=== PATIENT | male | born 1955 | race Caucasian/White ===

== ENCOUNTER 2023-03-21 22:01 | Emergency (ER) | payer OTHER, SELFPAY ==
[2023-03-21 22:02] VITALS: BP 173/87; PULSE 55; RESP 15; TEMP 36.4; O2SAT 100; BMI 28.9
[2023-03-21 22:41] VITALS: BP 139/84; BP 154/85; BP 155/95; PULSE 56; PULSE 58; PULSE 65
--- NOTE | 2023-03-21 22:41 | CT_ITS ---
INDICATION: dizziness EXAMINATION: CT BRAIN - CT Head or Brain W/O Contrast Injection TECHNIQUE: Multiple axial images were obtained of the head without intravenous contrast. A radiation dose optimization technique was used for this scan. IV Contrast dosage and agent: None. COMPARISON: None. FINDINGS: BRAIN PARENCHYMA: No intra- or extra-axial hemorrhage. No evidence of acute infarct. No intracranial mass or mass effect. Posterior fossa structures are unremarkable. CSF SPACES: Appropriate for age. No hydrocephalus. Basal cisterns are patent. CALVARIUM, SKULL BASE, PARANASAL SINUSES AND MASTOID AIR CELLS: Scattered ethmoid mucoperiosteal thickening. No discrete lytic or blastic abnormalities. ORBITS: Both globes, extraocular muscles, optic nerves and retrobulbar fat appear unremarkable. CT/Brain/Head without Contrast IMPRESSION: No acute intracranial findings. Electronically Signed: Juve Rodríguez MD at 23:16 EDT ,
[2023-03-21 22:56] LABS: Absolute Lymphocyte Count 1.46 X10^3/uL (0.83-4.51); Absolute Neutrophil Count 2.8 X10^3/uL (2.0-7.7); Basophil# 0.02 X10^3/uL; Basophil% 0.4 % (0-1); Eosinophil# 0.08 X10^3/uL; Eosinophils% 1.6 % (0-5); Hematocrit 40.8 % (40-54); Hemoglobin 13.5 g/dL (13.0-16.5); Lymphocyte # 1.46 X10^3/ul (0.83-4.51); Mean Corp Hgb Conc 33.1 g/dL (32-36); Mean Corpuscular Hgb 31.4 pg (27.0-32.0); Mean Corpuscular Volume 94.9 fL (80-94); Mean Platelet Vol. 9.3 fl (6.2-12.0); Monocyte# 0.53 X10^3/uL; Monocyte% 10.9 % (0-10); NRBC Flagged by Analyzer 0 % (0-5); Neutrophil # 2.77 X10^3/uL (2.7-7.7); Neutrophil % 57.1 % (47-70); Platelet Count 218 K/mm3 (150-450); RBC Distribution Width CV 12.8 % (11.6-14.6); RBC Distribution Width SD 44.6 fl (35.1-43.9); White Blood Count 4.9 K/mm3 (4.4-11.0)
--- NOTE | 2023-03-21 23:05 | RAD_ITS ---
INDICATION: dizziness EXAMINATION/TECHNIQUE: X-RAY - XR Chest 2 Views COMPARISON: None. FINDINGS: LINES/DEVICES: None. LUNGS: No consolidation, edema or effusion. No pneumothorax. MEDIASTINUM AND CARDIOVASCULAR STRUCTURES: Cardiac silhouette not enlarged. Central airways and mediastinal contour are unremarkable. BONES AND SOFT TISSUES: Unremarkable. RAD/Chest PA and Lateral IMPRESSION: No radiographic evidence of acute cardiopulmonary disease. Electronically Signed: Juve Rodríguez MD at 23:28 EDT ,
--- NOTE | 2023-03-21 23:08 | EDS_ITS ---
HPI History of Present Illness Chief Complaint: Dizziness Informant: patient and family Narrative Narrative: Patient is a 67-year-old male with past medical history of pretension recently started on hydralazine. He states that over the last couple days he has noted that if he stands up quickly or bends down to tie his shoes that he will feel dizzy. He describes this is more of a lightheaded/near passing out sensation. He denies any chest pain or palpitations associated with this. He reports he has had mild congestion and right ear fullness as well. Denies any recent bouts of vomiting diarrhea or loss of blood such as hematuria or hematochezia. He s tates that the dizziness is frequent with his position change and it is now affecting his day-to-day activities and therefore he comes in for evaluation [facility] Medical History Hypertension Home Medications aspirin 81 mg capsule 81 mg PO DAILY 03/21/23 [History Last Taken Unknown] hydralazine 10 mg tablet 10 mg PO BID 03/21/23 [History Last Taken Unknown] azelastine 137 mcg (0.1 %) nasal spray aerosol 2 spray intranasal BID #30 mL 03/22/23 [Rx Last Taken Unknown] Allergy/AdvReac Type Severity Reaction Status Date / Time No Known Allergies Allergy Verified 03/21/23 22:05 Surgical History no surgical history Social History Smoking Status: Never smoker [facility] ED Constitutional Constitutional ED: Denies chills or fever(s) Eyes Eyes: Denies change in vision ENT ENT ED: Reports rhinorrhea and other Details: Positive right ear fullness ; Denies sore throat Cardiovascular Cardiovascular: Reports other Details: Positive dizziness/near syncope ; Denies chest pain, palpitations or racing heartbeat Respiratory/Chest Respiratory/Chest: Denies cough or dyspnea Gastrointestinal Gastrointestinal: Denies abdominal pain, diarrhea, nausea or vomiting Genitourinary Genitourinary ED: Denies dysuria or hematuria Musculoskeletal Musculoskeletal: Denies myalgias Integumentary Denies rash Neurologic Neurologic: Denies headache(s), paresthesias or weakness Hematologic/Lymphatic Hematologic/Lymphatic: Denies easy bleeding or easy bruising EXAM Physical Exam Const Vital Signs: 03/21/23 22:02 03/21/23 22:28 03/21/23 22:41 Temperature 97.6 F L Temperature Source Temporal Pulse Rate 55 L Pulse Rate [Lying] 56 L Pulse Rate [Sitting (for 1 minute prior to obtaining)] 58 L Pulse Rate [Standing (for 1 minute prior to obtaining)] 65 Respiratory Rate 15 Respiratory Effort Normal Non-Labored Respiratory Pattern Normal Blood Pressure 173/87 H Blood Pressure [Lying] 139/84 H Blood Pressure [Sitting (for 1 minute prior to obtaining)] 154/85 H Blood Pressure [Standing (for 1 minute prior to obtaining)] 155/95 H Blood Pressure Mean 115 Blood Pressure Mean [Lying] 102 Blood Pressure Mean [Sitting (for 1 minute prior to obtaining)] 108 Blood Pressure Mean [Standing (for 1 minute prior to obtaining)] 115 Pulse Ox 100 Oxygen Delivery Method 03/21/23 23:57 Temperature Temperature Source Pulse Rate 50 L Pulse Rate [Lying] Pulse Rate [Sitting (for 1 minute prior to obtaining)] Pulse Rate [Standing (for 1 minute prior to obtaining)] Respiratory Rate 20 H Respiratory Effort Respiratory Pattern Blood Pressure 148/93 H Blood Pressure [Lying] Blood Pressure [Sitting (for 1 minute prior to obtaining)] Blood Pressure [Standing (for 1 minute prior to obtaining)] Blood Pressure Mean 111 Blood Pressure Mean [Lying] Blood Pressure Mean [Sitting (for 1 minute prior to obtaining)] Blood Pressure Mean [Standing (for 1 minute prior to obtaining)] Pulse Ox 96 Oxygen Delivery Method Room Air Positive well nourished and well developed General Appearance ED: well developed; Negative for pallor HEENT HEENT Narrative: Mucous membranes are slightly dry and tacky without secondary changes to suggest infection Bilateral ear canals are normal the right TM is slightly retracted but no secondary changes to suggest infection Eyes PERRL and EOMs intact bilaterally General Eye ED: Negative for pale conjunctiva or scleral icterus Neck supple Neck Narrative: No nuchal rigidity or meningeal signs noted Resp normal respiratory effort and clear to auscultation bilaterally Cardio regular rhythm Rate: bradycardia and other Other Details: Bradycardic rate with regular rhythm No murmurs rubs or gallops noted Radial and carotid pulses are equal and symmetric GI normal to inspection, nondistended, normoactive bowel sounds, non-tender, non- distended and no masses GI Narrative: No voluntary guarding or rigidity. No pulsatile mass or fluid wave Auscultation: normoactive bowel sounds Palpation: soft Extremity normal to inspection Extremity Narrative: No asymmetric edema no pitting edema negative Homans' sign bilaterally Neuro oriented x3, CN's II-XII intact bilaterally and no sensory deficits noted Neuro Narrative: Cranial nerves II through XII are grossly intact there are no focal neurologic deficits. No pronator drift no dysmetria no truncal ataxia. Stroke scale score 0. No nystagmus noted. Negative [address] exam Sensorium / Orientation: alert Motor Exam: strength 5/5 throughout Psych mental status grossly normal Skin no rashes or lesions noted Skin Narrative: Skin turgor is slightly increased General Skin Exam: Negative for jaundice or pallor MDM MDM MDM Narrative Medical decision making narrative: Patient presented to the ER mildly hypertensive but does have a recent diagnosis of this and otherwise with stable vitals. He reported dizziness that occurred with changes in position but did not have any nystagmus and described the sensation as more of a near syncopal event not a motion going against peripheral vertigo. Other differential diagnoses are for cardiac dysrhythmia acute coronary syndrome acute blood loss anemia acute kidney injury electrolyte derangement or brain mass versus brain bleed. Head CT was obtained secondary to this which revealed no acute finding. Lab work revealed no clinically significant changes. Orthostatic vital signs were obtained as well and were technically negative. Patient also states that with the changes in position for the Ortho she did not have return of his near syncope symptoms. He states he feels normal at this time. As he is also had some congestion and sinus pressure and his physical exam shows mild right-sided eustachian tube dysfunction I feel this is most likely the cause of his symptoms. Patient will be given a liter of fluid because of his reported near syncope with changes in position but also Decadron secondary to his eustachian tube dysfunction. Following administration of fluids and Decadron vitals remained stable his neurologic exam remained normal and he is able to ambulate with a steady gait. I do feel this is most likely related to eustachian tube dysfunction I will place him on as Astelin nasal spray to help with any type of eustachian tube dysfunction but as this does not appear to be cardiac or neurologic in nature he is otherwise safe for discharge History & Record Review Discussion w/independent historian: Patient and Family Lab Data Attestation: I reviewed the patient's lab results. Labs: Laboratory Results - last 24 hr 03/21/23 22:50 WBC 4.9 RBC 4.30 L Hgb 13.5 Hct 40.8 MCV 94.9 H MCH 31.4 MCHC 33.1 RDW Std Deviation 44.6 H RDW Coeff of Torey 12.8 Plt Count 218 MPV 9.3 Immature Gran % (Auto) 0.000 Neut % (Auto) 57.1 Lymph % (Auto) 30.0 Thurston % (Auto) 10.9 H Eos % (Auto) 1.6 Baso % (Auto) 0.4 Absolute Neuts (auto) 2.8 Absolute Lymphs (auto) 1.46 Nucleated RBC % 0 Sodium 142 Potassium 4.3 Chloride 110 H Carbon Dioxide 27.0 Anion Gap 5 BUN 30 H Creatinine 1.00 Estim Creat Clear Calc 70.30 Est GFR (MDRD) Af Amer 96 Est GFR (MDRD) Non-Af 79 BUN/Creatinine Ratio 30.0 H Glucose 112 H Calcium 9.0 Magnesium 2.1 Troponin I High Sens 6 Radiography Diagnostic Testing: Clinical Impression(s) from Imaging Studies Brain CT 03/21/23 22:41 IMPRESSION: No acute intracranial findings. Electronically Signed: Juve Rodríguez MD at 23:16 EDT , Chest X-Ray 03/21/23 23:05 IMPRESSION: No radiographic evidence of acute cardiopulmonary disease. Electronically Signed: Juve Rodríguez MD at 23:28 EDT , 2 view Chest x-ray as interpreted by the emergency medicine physician reveals no acute infiltrate pneumothorax pleural effusion or widening of the mediastinum Discharge Plan Triage Chief Complaint: Dizziness ED Provider: [facility] Dx/Rx/DC Orders Clinical Impression: Dysfunction of right eustachian tube, Dizziness, Hypertension Instructions: Anatomy of the Inner Ear, Dizziness Fainting Causes Prescriptions: New azelastine 137 mcg (0.1 %) aerosol,spray 2 spray intranasal BID Qty: 30 2RF Rx Instructions: administer into each nostril No Action hydralazine 10 mg tablet 10 mg PO BID aspirin 81 mg capsule 81 mg PO DAILY Primary Care Provider: Blas Robb NP Referrals: Blas Robb NP, [facility] [Primary Care Provider] - Activity Restrictions/Additional Instructions: Your work-up today showed no sign of heart damage or stroke. I feel that your dizziness is most likely related to pressure within the inner ear. Secondary to this take the nasal spray as directed. Also keep yourself well-hydrated continue your aspirin and hydralazine as previously directed. If you have worsening of symptoms or any further concerns please return to the ER for repeat evaluation. Disposition Disposition: Home, Self Care
[2023-03-21 23:16] LABS: Anion Gap 5 (5-15); BUN 30 mg/dL (7-18); Chloride 110 mmol/L (98-107); EST Glomerular Filtration Rate 79 mL/min (>60); Est Glom Filt Rate - Afr Amer 96 mL/min (>60); Glucose 112 mg/dL (74-106); Magnesium 2.1 mg/dL (1.6-2.6); Potassium 4.3 mmol/L (3.5-5.1); Sodium Level 142 mmol/L (136-145); Troponin-I HS 6 pg/mL (3.0-78.0)
[2023-03-21 23:57] VITALS: BP 148/93; PULSE 50; RESP 20; O2SAT 96
[2023-03-21] MEDS: 0.9% Normal Saline (1000mL) 1,000 ML 999 ML IV (23:58)
[2023-03-21] MEDS: dexAMETHasone 10 MG/ML Vial IV (23:58)
[2023-03-22 00:46] VITALS: BP 146/88; PULSE 48; RESP 15; O2SAT 98
== END 2023-03-22 00:51 | disposition home or self-care (01) ==
PROVIDERS: Emergency Provider Emergency Medicine; PCP Nurse Practitioner Family; Visit Provider Emergency Medicine
DX: H69.91 Unspecified Eustachian tube disorder, right ear (principal); R42 Dizziness and giddiness; I10 Essential (primary) hypertension; Z79.82 Long term (current) use of aspirin; Z79.899 Other long term (current) drug therapy
CPT/HCPCS: 70450; 71046; 80048; 83735; 84484; 85025; 93005; 96361; 96374; 99284; J7030; A4216

== ENCOUNTER 2023-06-12 00:49 | Emergency (ER) | payer OTHER, SELFPAY ==
[2023-06-12 00:51] VITALS: BP 136/92; PULSE 57; RESP 16; TEMP 36.6
[2023-06-12 00:53] VITALS: BP 136/92; PULSE 58; RESP 20; TEMP 36.7; O2SAT 100; BMI 29.7
--- OUTSIDE RECORDS SUMMARY | 2023-06-12 01:14 | XMS RPT_ITS | CCD ---
Author Name Unknown Address [id number] [place] [address] Organization [facility] Care Team Providers Care [employer] Technician Name Role Phone JUANITA Benitez CNP, GERDA Craig Primary [facility] U [facility] Springer Attending Unavailable JO ANN BARRAZA Primary Care Unavaildavid GALO MD, SOHAN Hein Attending Unavailable PAYAM GARCIA, DR PRICE Attending Unavailab jerry Benitez CNP, GERDA Craig Primary Care [facility] FLORI WATTS, JO ANN Primary Care Physician Medications Current Medications Medication Drug Class(es) Dates Sig (Normalized) Sig (Original) aspirin 81 mg delayed release oral tablet (1 source) Platelet Aggregation Inhibitor, Nonsteroidal Anti-inflammatory Drug Start: 03-26-2023 take 1 mg by mouth once daily aspirin 81 mg oral delayed release tablet mg = tab(s), Oral, qDay, 0 Refill(s) Start Date: 03/26/23 Status: Ordered cardio renew (1 source) Start: 03-26-2023 cardio renew cardio renew, 0 Refill(s), 84.1 Start Date: 03/26/23 Status: Ordered hydrALAZINE hydrochloride 10 mg oral tablet (1 source) Arteriolar Vasodilator Start: 03-17-2023 hydrALAZINE 10 mg oral tablet Dose : 10 mg = 1 tab(s), Oral, BID, # 60 tab(s), 6 Refill(s), Pharmacy: [facility], 172.7, cm, 03/17/23 10:24:00 EDT, Height, kg, 03/17/23 10:24:00 EDT, Dosing Weight Start Date: 03/17/23 Status: Ordered Problems Problem Classification Problem Date Documented Da te Episodic/Chronic Cardiac dysrhythmias (1 source) Bradycardia 03-17-2023 Episodic Conditions associated with dizziness or vertigo (1 source) Dizziness and giddiness; Translations: [Dizziness and giddiness] Onset: 06-07-2023 Episodic Essential hypertension (1 source) Hypertensive disorder 03-17-2023 Chronic Other nervous system disorders (1 source) Impaired cognition; Translations: [Other symptoms and signs involving cognitive functions and awareness] Onset: 06-07-2023 Episodic Otitis media and related conditions (1 source) Dysfunction of eustachian tube 03-26-2023 Episodic Unclassified (1 source) Patient encounter status 03-26-2023 Results Test Name Value Interpretation Reference Range Facil ity Vital Signs Date Time Vital Sign Value Performing Clinician Faci lity 06-07-2023 10:04-0500 Diastolic Blood Pressure Non-Invasive 85 mm[Hg] SOHAN GALO MD [facility] 06-07-2023 10:04-0500 Heart rate 52 /min SOHAN GALO MD [facility] 06-07-2023 10:04-0500 Mean blood pressure 101 mm[Hg] SOHAN GALO MD [facility] 06-07-2023 10:04-0500 Respiratory rate 12 /min SOHAN GALO MD [facility] 06-07-2023 10:04-0500 Systolic Blood Pressure Non-Invasive 133 mm[Hg] SOHAN GALO MD [facility] 06-07-2023 09:14-0500 Blood Pressure Method SOHAN GALO MD [facility] 06-07-2023 09:14-0500 Diastolic Blood Pressure Non-Invasive 89 mm[Hg] SOHAN GALO MD [facility] 06-07-2023 09:14-0500 Heart rate 50 /min SOHAN GALO MD [facility] 06-07-2023 09:14-0500 Mean blood pressure 108 mm[Hg] SOHAN GALO MD [facility] 06-07-2023 09:14-0500 Respiratory rate 16 /min SOHAN GALO MD [facility] 06-07-2023 09:14-0500 Systolic Blood Pressure Non-Invasive 148 mm[Hg] SOHAN GALO MD [facility] 06-07-2023 07:37-0500 Blood Pressure Location SOHAN GALO MD [facility] 06-07-2023 07:37-0500 Blood Pressure Method SOHAN GALO MD [facility] 06-07-2023 07:37-0500 Body height 170.2 cm SOHAN GALO MD [facility] 06-07-2023 07:37-0500 Body temperature 96.98 [degF] SOHAN GALO MD [facility] 06-07-2023 07:37-0500 Body weight 84.1 kg SOHAN GALO MD [facility] 06-07-2023 07:37-0500 Diastolic Blood Pressure Non-Invasive 95 mm[Hg] SOHAN GALO MD [facility] 06-07-2023 07:37-0500 Heart rate 55 /min SOHAN GALO MD [facility] 06-07-2023 07:37-0500 Respiratory rate 16 /min SOHAN GALO MD [facility] 06-07-2023 07:37-0500 Systolic Blood Pressure Non-Invasive 163 mm[Hg] SOHAN GALO MD [facility] Encounters Encounter Date Encounter Type Care Provider Facility Start: 06-07-2023 End: 06-07-2023 Emergency department patient visit JO ANN RUBY [facility] Facility:B Start: 06-07-2023 End: 06-07-2023 Emergency department patient visit SOHAN GALO MD [facility] Start: 03-23-[address] DEE HARE MD F acility:B Start: 03-06-2023 End: 03-06-2023 Emergency department patient visit GERDA Kiara [facility] Facility:B Payers Date Payer Category Payer Self-pay 1955 Unknown [id number] 1955 Unknown [id number] 1955 Unknown [id number] Social History Date Type Detail Facility Start: 03-17-2023 Tobacco smoking status Never s moked tobacco (finding) [facility] CVC Sex Assigned At Male [facility] Functional Status Date Assessment Result Facility 06-07-2023 Functional Status Independent [facility] 06-07-2023 Functional Status Independent [facility] 06-07-2023 Functional Status ID band on, Allergy Band on, Call device within reach, Bed in low position, Wheels locked [facility] Mental Status Date Assessment Result Facility 06-07-2023 Mental Status Orientation Oriented x 4 [facility] 06-07-2023 Mental Status [facility] Discharge instructions 06-07-2023 Note Date & Type Note Facility 06-07-2023 Hospital Discharg e instructions Patient Education 06/07/2023 10:05:46 Near Syncope, Unknown Near-Fainting with Uncertain Cause Fainting (syncope) is a temporary loss of consciousness (passing out). This happens when blood flow to the brain is reduced. Near-fainting (near-syncope) is like fainting, but you do not fully pass out. Instead, you feel like you are going to pass out, but do not actually lose consciousness. Signs and symptoms The following are symptoms of near-fainting: Feeling lightheaded or like you are going to faint Weak pulse Nausea Sweating Blurred vision or feeling like your vision is fading Palpitations Chest pain Hard time breathing Feeling cool and clammy Causes This happens when your blood pressure suddenly drops, and not enough blood flows to your brain. Common minor causes include: Sudden emotional stress such as fear, pain, panic, or the sight of blood Straining or overexertion, such as straining while using the toilet, coughing, or sneezing Standing up too quickly, or standing up for too long a time More serious causes include: Very slow, fast, or irregular heart rate (arrhythmia) Dehydration Significant blood loss Medicines, or a recent change in medicines. Medicines that can cause fainting include blood pressure or heart medicines. Heart attack Heart valve problems Remember, even minor causes can become serious if you fall and injure yourself, or are driving. You may need more tests. It is very important that you follow up with your doctor as advised. Home care The following guidelines will help you care for yourself at home: Rest today. Resume your normal activities as soon as you are feeling back to normal. If you become lightheaded or dizzy, lie down right away or sit with your head between your knees. Drink plenty of fluids and don't skip meals. Because the exact cause of your near fainting spell is not known, another spell could occur without warning. To stay safe, do not drive a car or use dangerous equipment. Do not take a bath alone. Use a shower instead. Do not swim alone. You can resume these activities when your healthcare provider says that you are no longer in danger of having a near-fainting spell. Follow-up care Follow up with your healthcare provider, or as advised. Call 911 Call 911 if any of the following occur: Another near-fainting or full fainting spell occurs, and it is not explained by the common causes listed above Chest, arm, neck, jaw, back or abdominal pain Shortness of breath Weakness, tingling, or numbness in one side of the face, or in one arm or leg Slurred speech, confusion, trouble walking or seeing Seizure When to seek medical advice Call your healthcare provider right away if any of these occur: Changes in your medicines Occasional mild lightheadedness, especially when standing up too quickly or straining [id number] [employer]. [address] [place] [address], [place] [address]. All rights reserved. This information is not intended as a substitute for professional medical care. Always follow your healthcare professional's instructions. 06/07/2023 10:05:43 Dizziness, Uncertain Cause Dizziness (Uncertain Cause) Dizziness is a common symptom. It may be described as lightheadedness, spinning, or feeling like you are going to faint. Dizziness can have many causes. Be sure to tell the healthcare provider about: All medicines you take, including prescription, [id number], herbs, and supplements Any other symptoms you have Any health problems you are being treated for Any past major health problems you've had, such as a heart attack, balance issues, hearing problems, or blood pressure problems Anything that causes the dizziness to get worse or better Today's exam did not show an exact cause for your dizziness. Other tests may be needed. Follow up with your healthcare provider. Home care Dizziness that occurs with sudden standing may be a sign of mild dehydration. Drink extra fluids for the next few days. If you recently started a new medicine, stopped a medicine, or had the dose of a current medicine changed, talk with the prescribing healthcare provider. Your medicine plan may need adjustment. If dizziness lasts more than a few seconds, sit or lie down until it passes. This may help prevent injury in case you pass out. Get up slowly when you feel better. Don't drive or use power tools or dangerous equipment until you have had no dizziness for at least 48 hours. Follow-up care Follow up with your healthcare provider for further evaluation within the next 7 days or as advised. When to seek medical advice Call your healthcare provider for any of the following: Worsening of symptoms or new symptoms Passing out or seizure Repeated vomiting Headache Palpitations (the sense that your heart is fluttering or beating fast or hard) Shortness of breath Blood in vomit or stool (black or red color) Weakness of an arm or leg or 1 side of the face Vision or hearing changes Trouble walking or speaking Chest, arm, neck, back, or jaw pain [phone] [employer]. [address] [place] [address]. All rights reserved. This information is not intended as a substitute for professional medical care. Always follow your healthcare professional's instructions. Follow Up Care 06/07/2023 07:30:37 With:DEE HARE MD Address: [address] [place] [phone] When:2-4 days With:JO ANN RUBY Address: [address] [place] [phone] When:2-4 days [facility] Clinical Note 06-07-2023 Note Date & Type Note Facility 06-07-2023 Note Discharge Instructions Thank you for allowing [facility] to assist you with your healthcare needs. The following is important discharge information regarding your hospital visit. Diagnosis from Today's Visit Dizziness Dizzy spells Lightheadedness What to Do Next Instructions from Your Care Team No qualifying data available. Post Acute Orders No qualifying data available. You Need to Schedule the Following Appointments Follow Up with DEE HARE MD When Within 2-4 days Where: [address] [phone] Follow Up with JO ANN RUBY When Within 2-4 days Where: [address] [place] [phone] Allergies NKA Medications Please ask your primary doctor or pharmacist before taking any other medication not listed, including over the counter drugs, herbal medications, vitamins and or supplements as they may interact with your home medications. What How Much When Instructions Last Dose Unchanged aspirin (aspirin 81 mg oral delayed release tablet) by mouth Once a day Unchanged hydrALAZINE (hydrALAZINE 10 mg oral tablet) 1 tab(s) by mouth Two (2) times a day Unchanged Misc Medication (cardio renew) Please take this list to your next doctor s visit. Bring all medications you take, including over the counter medications, herbals and other supplements with you to your doctor s visit. Patients and families are reminded to discard old lists and to update any records with all medication providers or retail pharmacies. Medication Leaflets hydralazine (clare hobson) What is the most important information I should know about hydralazine? You should not use this medicine if you have coronary artery disease, or rheumatic heart disease affecting the mitral valve. What is hydralazine? Hydralazine is a vasodilator that works by relaxing the muscles in your blood vessels to help them dilate (widen). This lowers blood pressure and allows blood to flow more easily through your veins and arteries. Hydralazine is used to treat high blood pressure (hypertension). Hydralazine may also be used for purposes not listed in this medication guide. What should I discuss with my healthcare provider before taking hydralazine? You should not use hydralazine if you are allergic to it, or if you have: coronary artery disease; or rheumatic heart disease affecting the mitral valve. To make sure hydralazine is safe for you, tell your doctor if you have ever had: kidney disease; systemic lupus erythematosus; angina (chest pain); or a stroke. It is not known whether this medicine will harm an unborn baby. Tell your doctor if you are or plan to become . Hydralazine can pass into breast milk, but effects on the nursing baby are not known. Tell your doctor if you are breast-feeding. Hydralazine is not approved for use by anyone younger than 18 years old. How should I take hydralazine? Follow all directions on your prescription label. Do not take this medicine in larger or smaller amounts or for longer than recommended. Your blood pressure will need to be checked often. You may also need frequent blood tests. Keep using this medicine as directed, even if you feel well. High blood pressure often has no symptoms. You may need to use blood pressure medicine for the rest of your life. Store at room temperature away from moisture and heat. What happens if I miss a dose? Take the missed dose as soon as you remember. Skip the missed dose if it is almost time for your next scheduled dose. Do not take extra medicine to make up the missed dose. What happens if I overdose? Seek emergency medical attention or call the Poison Help line at . Overdose symptoms may include rapid heartbeats, warmth or tingling under your skin, chest pain, or fainting. What should I avoid while taking hydralazine? Avoid getting up too fast from a sitting or lying position, or you may feel dizzy. Get up slowly and steady yourself to prevent a fall. What are the possible side effects of hydralazine? Get emergency medical help if you have signs of an allergic reaction: hives; difficult breathing; swelling of your face, lips, tongue, or throat. Call your doctor at once if you have: chest pain or pressure, pain spreading to your jaw or shoulder; fast or pounding heartbeats; a light-headed feeling, like you might pass out; numbness, tingling, or burning pain in your hands or feet; painful or difficult urination; little or no urination; or lupus-like syndrome--joint pain or swelling with fever, swollen glands, muscle aches, chest pain, vomiting, unusual thoughts or behavior, and patchy skin color. Common side effects may include: chest pain, fast heart rate; headache; or nausea, vomiting, diarrhea, loss of appetite. This is not a complete list of side effects and others may occur. Call your doctor for medical advice about side effects. You may report side effects to FDA at 4-634-ROR-6060. What other drugs will affect hydralazine? Tell your doctor about all your current medicines and any you start or stop using, especially: diazoxide (an injectable blood pressure medication); or an MAO inhibitor--isocarboxazid, linezolid, methylene blue injection, phenelzine, rasagiline, selegiline, tranylcypromine, and others. This list is not complete. Other drugs may interact with hydralazine, including prescription and kcar-iqk-zywlmui medicines, vitamins, and herbal products. Not all possible interactions are listed in this medication guide. Where can I get more information? Your pharmacist can provide more information about hydralazine. Remember, keep this and all other medicines out of the reach of children, never share your medicines with others, and use this medication only for the indication prescribed. Every effort has been made to ensure that the information provided by [employer]') is accurate, up-to-date, and complete, but no guarantee is made to that effect. Drug information contained herein may be time sensitive. [employer] information has been compiled for use by healthcare practitioners and consumers in the [place] and therefore [employer] does not warrant that uses outside of the [place] are appropriate, unless specifically indicated otherwise. [employer]'s drug information does not endorse drugs, diagnose patients or recommend therapy. [employer] drug information is an informational resource designed to assist licensed healthcare practitioners in caring for their patients and/or to serve consumers viewing this service as a supplement to, and not a substitute for, the expertise, skill, knowledge and judgment of healthcare practitioners. The absence of a warning for a given drug or drug combination in no way should be construed to indicate that the drug or drug combination is safe, effective or appropriate for any given patient. [employer] does not assume any responsibility for any aspect of healthcare administered with the aid of information [employer] provides. The information contained herein is not intended to cover all possible uses, directions, precautions, warnings, drug interactions, allergic reactions, or adverse effects. If you have questions about the drugs you are taking, check with your doctor, nurse or pharmacist. Copyright 0605-3921 [employer] Version: 7.01. Revision Date: 01/01/2023. Education Materials Near-Fainting with Uncertain Cause Fainting (syncope) is a temporary loss of consciousness (passing out). This happens when blood flow to the brain is reduced. Near-fainting (near-syncope) is like fainting, but you do not fully pass out. Instead, you feel like you are going to pass out, but do not actually lose consciousness. Signs and symptoms The following are symptoms of near-fainting: Feeling lightheaded or like you are going to faint Weak pulse Nausea Sweating Blurred vision or feeling like your vision is fading Palpitations Chest pain Hard time breathing Feeling cool and clammy Causes This happens when your blood pressure suddenly drops, and not enough blood flows to your brain. Common minor causes include: Sudden emotional stress such as fear, pain, panic, or the sight of blood Straining or overexertion, such as straining while using the toilet, coughing, or sneezing Standing up too quickly, or standing up for too long a time More serious causes include: Very slow, fast, or irregular heart rate (arrhythmia) Dehydration Significant blood loss Medicines, or a recent change in medicines. Medicines that can cause fainting include blood pressure or heart medicines. Heart attack Heart valve problems Remember, even minor causes can become serious if you fall and injure yourself, or are driving. You may need more tests. It is very important that you follow up with your doctor as advised. Home care The following guidelines will help you care for yourself at home: Rest today. Resume your normal activities as soon as you are feeling back to normal. If you become lightheaded or dizzy, lie down right away or sit with your head between your knees. Drink plenty of fluids and don't skip meals. Because the exact cause of your near fainting spell is not known, another spell could occur without warning. To stay safe, do not drive a car or use dangerous equipment. Do not take a bath alone. Use a shower instead. Do not swim alone. You can resume these activities when your healthcare provider says that you are no longer in danger of having a near-fainting spell. Follow-up care Follow up with your healthcare provider, or as advised. Call 911 Call 911 if any of the following occur: Another near-fainting or full fainting spell occurs, and it is not explained by the common causes listed above Chest, arm, neck, jaw, back or abdominal pain Shortness of breath Weakness, tingling, or numbness in one side of the face, or in one arm or leg Slurred speech, confusion, trouble walking or seeing Seizure When to seek medical advice Call your healthcare provider right away if any of these occur: Changes in your medicines Occasional mild lightheadedness, especially when standing up too quickly or straining [phone] [employer]. [address] [place] [address]. All rights reserved. This information is not intended as a substitute for professional medical care. Always follow your healthcare professional's instructions. Dizziness (Uncertain Cause) Dizziness is a common symptom. It may be described as lightheadedness, spinning, or feeling like you are going to faint. Dizziness can have many causes. Be sure to tell the healthcare provider about: All medicines you take, including prescription, kdgt-uyg-bcphunu, herbs, and supplements Any other symptoms you have Any health problems you are being treated for Any past major health problems you've had, such as a heart attack, balance issues, hearing problems, or blood pressure problems Anything that causes the dizziness to get worse or better Today's exam did not show an exact cause for your dizziness. Other tests may be needed. Follow up with your healthcare provider. Home care Dizziness that occurs with sudden standing may be a sign of mild dehydration. Drink extra fluids for the next few days. If you recently started a new medicine, stopped a medicine, or had the dose of a current medicine changed, talk with the prescribing healthcare provider. Your medicine plan may need adjustment. If dizziness lasts more than a few seconds, sit or lie down until it passes. This may help prevent injury in case you pass out. Get up slowly when you feel better. Don't drive or use power tools or dangerous equipment until you have had no dizziness for at least 48 hours. Follow-up care Follow up with your healthcare provider for further evaluation within the next 7 days or as advised. When to seek medical advice Call your healthcare provider for any of the following: Worsening of symptoms or new symptoms Passing out or seizure Repeated vomiting Headache Palpitations (the sense that your heart is fluttering or beating fast or hard) Shortness of breath Blood in vomit or stool (black or red color) Weakness of an arm or leg or 1 side of the face Vision or hearing changes Trouble walking or speaking Chest, arm, neck, back, or jaw pain [phone] [employer]. [address] [place] [address], [place] [address]. All rights reserved. This information is not intended as a substitute for professional medical care. Always follow your healthcare professional's instructions. Additional Information VACCINATE! IT SAVES LIVES! Members of the community who have not yet received the COVID-19 vaccine and would like to receive it can visit one of [facility] vaccine clinics. There are many vaccine clinic locations within the [facility]. For locations and available times, please visit [email or web address] It is important to note that some COVID mobile vaccine clinics are held outdoors and may be canceled in rainy or stormy conditions. To learn more about pediatric vaccinations (ages 5-11), we invite you to visit the [facility] webpage. [email or web address] To learn more about the COVID-19 vaccine, we invite you to visit the CDC website for a list of frequently asked questions. https://www.cdc.gov/coronavirus/2019-n cov/vaccines/faq.html [facility] Patient Portal Access Instructions: Stay connected with your healthcare team and access your personal medical information anytime with the [facility] Patient Portal. If you would like a full copy of your medical records please contact the [facility] Medical Records Department Wednesday through Wednesday between 8a.m. and 4:30p.m. Please follow the directions below to access the portal: 1.Access the email account you provided upon registration to the [facility].2.Look for an invitation email from [facility].3.Open the email and access the invitation link: Accept Invitation to [facility]4.Fill in the required angulo to create your account. Sign into www.Fit Steps with your username and password that you created in the above steps to stay up to date. You can then view a summary of results, a summary of your visits, and the ability to download your summaries to your computer or send the information securely to a physician. Remember that your healthcare information is confidential, so carefully consider who you will allow to register on the [facility] Patient Portal for access to your information. You can also access the [facility] Patient Portal on the [employer] machelle. Simply click on Health Records under Health Data and then click on the dakick logo. HOW TO SAFELY DISPOSE OF PRESCRIPTION MEDICATIONS Please use one of the following methods to safely dispose of your unused medications. 1.Use a drug disposal kit: the drug disposal pouch allows you to safely discard your old and unused drugs. Ask your nurse to give you one when you are discharged.2.Visit a local take-back location: Many local pharmacies and police departments have programs that collect old and unwanted prescription drugs. Call your local pharmacy or go to http://cloudswave.[employer]/8F9Sr7i to find one close to you.3.Make use of household items: Use cat litter or old coffee grounds to dispose medications if other options are not available. Mix your drugs with these household products, seal them in an airtight container and throw it into the garbage. Call [facility]: [phone] to be sure your drugs can be disposed of in this way. Some medicines may require a different approach.4.Never flush your medications down the toilet. IF YOU HAVE BEEN PRESCRIBED AN OPIOIDS FOR PAIN If you have been prescribed an opioid (such as hydrocodone, oxycodone or morphine), it is critical to understand the possible side effects and risks of opioid pain medications. Even when taken as directed, opioids can have several side effects including: Tolerance, meaning you might need to take more of a medication for the same pain relief. Nausea, vomiting and/or constipation. Sleepiness, dizziness, dry mouth, confusion, depression or itching. Physical dependence, meaning you have withdrawal symptoms when a medication is stopped ? this can develop within a few days. KNOW YOUR RESPONSIBILITIES It is important to know exactly how much and how often to take the opioid pain medications you are prescribed. Never take opioids in higher amounts or more often than prescribed. Do not combine opioids with alcohol or other drugs that cause drowsiness, such as benzodiazepines, also known as benzos, including diazepam and alprazolam, muscle relaxants or sleep aids. Never sell or share prescription opioids. This is illegal. Store opioids in a secure place and out of reach of others (including children, family, friends and visitors). The last page(s) of this document has been signed and retained as a CHART COPY Signatures Patient Education Materials Near Syncope, Unknown Dizziness, Uncertain Cause Medication Leaflets hydralazine My discharge plan and instructions have been reviewed and explained to me and I,OLAYINKA ROMERO understand my current condition and have read and understand these discharge instructions. I have received a written copy of the plan/instructions. If I have questions, I am aware that I should contact my doctor. Patient/Clerk Travel Reservations Signature: _ Date/Time: Relationship to Patient: Witness Name/Signature: Date/Time: [facility] Clinical Note 06-07-2023 Note Date & Type Note Facility 06-07-2023 Note ORIGINAL EXAMINATION: CTA OF THE HEAD WITH CONTRAST 06/07/2023 9:17 am: TECHNIQUE: CTA of the head/brain was performed with the administration of intravenous contrast. Multiplanar reformatted images are provided for review. MIP images are provided for review. Automated exposure control, iterative reconstruction, and/or weight based adjustment of the mA/kV was utilized to reduce the radiation dose to as low as reasonably achievable. COMPARISON: None. HISTORY: ORDERING SYSTEM PROVIDED HISTORY: Reason for Exam: dizzy spells FINDINGS: The intracranial carotid arteries are widely patent. Ophthalmic artery origins are visualized and normal. The middle and anterior cerebral arteries are patent bilaterally. An anterior communicating artery is present. The distal vertebral arteries are widely patent. The basilar artery and origins the superior cerebellar arteries are patent. The posterior cerebral arteries are patent. The posterior communicating arteries are not seen and are either hypoplastic or absent. Although not tailored for evaluation of the dural venous sinuses, no definite venous sinus thrombosis is identified on this exam. IMPRESSION: No large vessel occlusion. Interpreted by: Hillary Doty MD Preliminary Report By: Hillary Doty MD Electronically signed By Hillary Doty MD Dictated Date: 06/07/2023 9:30:38 AM Prelim Date: 06/07/2023 9:35:02 AM Sign Date: 06/07/2023 9:35:02 AM Ordering Provider: SOHAN GALO [facility] Clinical Note 06-07-2023 Note Date & Type Note Facility 06-07-2023 Note ORIGINAL EXAMINATION: CTA OF THE NECK 06/07/2023 9:34 am TECHNIQUE: CTA of the neck was performed with the administration of intravenous contrast. Multiplanar reformatted images are provided for review. MIP images are provided for review. Stenosis of the internal carotid arteries measured using NASCET criteria. Automated exposure control, iterative reconstruction, and/or weight based adjustment of the mA/kV was utilized to reduce the radiation dose to as low as reasonably achievable. COMPARISON: None. HISTORY: ORDERING SYSTEM PROVIDED HISTORY: Reason for Exam: dizzy spells FINDINGS: There is mild atherosclerotic disease of the aortic arch. No significant stenosis at the origins of the innominate artery, bilateral common carotid arteries, bilateral subclavian arteries, and bilateral vertebral arteries. No significant stenosis of the right ICA which is tortuous and loops in the neck. The right external carotid artery is patent. There is trace atherosclerotic disease at the left carotid bifurcation without significant left ICA stenosis. The left ICA is mildly tortuous. The left external carotid artery is patent. The vertebral arteries are patent with mild left dominance. There are findings which can be seen in right vocal cord paralysis. Mild mucosal thickening in the paranasal sinuses. Mild degenerative changes in the spine. IMPRESSION: No significant ICA stenosis. Tortuous ICAs bilaterally, right greater than left. Vertebral artery patency. Interpreted by: Hillary Doty MD Preliminary Report By: Hillary Doty MD Electronically signed By Hillary Doty MD Dictated Date: 06/07/2023 9:39:04 AM Prelim Date: 06/07/2023 9:43:21 AM Sign Date: 06/07/2023 9:43:21 AM Ordering Provider: SOHAN [facility] Clinical Note 06-07-2023 Note Date & Type Note Facility 06-07-2023 Note ORIGINAL EXAMINATION: CT OF THE HEAD WITHOUT CONTRAST 06/07/2023 9:13 am TECHNIQUE: CT of the head was performed without the administration of intravenous contrast. Automated exposure control, iterative reconstruction, and/or weight based adjustment of the mA/kV was utilized to reduce the radiation dose to as low as reasonably achievable. COMPARISON: None. HISTORY: ORDERING SYSTEM PROVIDED HISTORY: Reason for Exam: pain FINDINGS: No acute intracranial hemorrhage, hydrocephalus, or mass effect. Ventricular caliber is age appropriate. Pereira-white differentiation appears maintained without CT evidence of acute large territory infarct. Mild mucosal thickening seen in the paranasal sinuses. The mastoid air cells appear clear. No acute calvarial abnormality. IMPRESSION: No acute intracranial hemorrhage, hydrocephalus, or mass effect. Interpreted by: Hillary Doty MD Preliminary Report By: Hillary Doty MD Electronically signed By Hillary Doty MD Dictated Date: 06/07/2023 9:27:43 AM Prelim Date: 06/07/2023 9:30:30 AM Sign Date: 06/07/2023 9:30:30 AM Ordering Provider: SOHAN GALO [facility] Clinical Note 06-07-2023 Note Date & Type Note Facility 06-07-2023 Note Sinus rhythm Borderline left axis deviation RSR' in V1 or V2, probably normal variant Baseline wander in lead(s) V1 Electronic Signature: SOHAN GALO MD 06/07/2023 08:31:57 [facility] Evaluation + Plan note 03-23-2023 Radiology Note Date & Type Note Facility 03-23-2023 Evaluation + Plan note Future Scheduled TestsNM Myocardial Spect Rest/Stress 03/23/23 [facility] Hospital course Narrative Note Date & Type Note Facility Hospital course Narrative No data available for this section [facility] Summary Purpose Family History No Family History Records Found No data available for this section Advance Directives No Advanced Directives Records Found Additional Source Comments (unrecognized sect ion and content) No Status Records Found INFORMATION SOURCE (unrecogn ized section and content) Patient Care team informatio n (unrecognized section and content) Care Team Personnel Name: JO ANN RUBY Position: P4 Advanced Operations Inspector Member Role: Primary Care Physician Address: Address: [address] [place], [place] [address] Name: SOHAN GALO MD Position: ED Physician Member Role: ED Physician Address: Address: [facility] [address] [place] [id number] Name: Marlee Rosenberg RN Position: AO RN Member Role: ED RN Care Team Related Persons Name: NONE, NONE FOR RECORDS PERTAINING TO PATIENTS WHO ARE OR HAVE BEEN ENROLLED IN A CHEMICAL DEPENDENCY/SUBSTANCEABUSE PROGRAM, SOME INFORMATION MAY BE OMITTED. This clinical summary was aggregated from multiple sources. Caution should be exercised in using it in the provision of clinical care. This summary normalizes information from multiple sources, and as a consequence, information in this document may materially change the coding, format and clinical context of patient data. In addition, data may be omitted in some cases. CLINICAL DECISIONS SHOULD BE BASED ON THE PRIMARY CLINICAL RECORDS. [facility]. provides no warranty or guarantee of the accuracy or completeness of information in this document.
--- NOTE | 2023-06-12 01:15 | EKG12_ITS ---
Test Reason : DYSRHYTHMIA Blood Pressure : / mmHG Vent. Rate : 059 BPM Atrial Rate : 059 BPM P-R Int : 152 ms QRS Dur : 096 ms QT Int : 412 ms P-R-T Axes : -25 -10 026 degrees QTc Int : 407 ms Sinus bradycardia Otherwise normal ECG Confirmed by JAIME GARCIA, ALISSA ([id number]), assignment desk editor NOLVIA HARVEY ([id number]) on 06/14/2023 6:40:30 AM Referred By: DEBORAH Confirmed By:ALISSA SANDOVAL MD
--- NOTE | 2023-06-12 01:17 | EX.ED.DYSGE1 ---
HPI History of Present Illness Chief Complaint: Palpitations Detail of Chief Complaint: Racing heart and shortness of breath Informant: patient Narrative Narrative: Presents to the emergency department with complaint of feeling like his heart is racing. Patient states that he went to bed around 10:00 feeling okay and he woke up around midnight felt like his heart was racing and he was short of breath. Had some mild chest discomfort. He had similar symptoms in the past. Patient was seen 5 days ago in the emergency department at another facility where he had scans of his head and neck and cardiac workup that were unremarkable. No etiology was ever found for his episodes like this. Patient denies recent illness. Does have history of some depression thinks there may be some anxiety. [facility] Medical History Hypertension Home Medications aspirin 81 mg capsule 81 mg PO DAILY 03/21/23 [History Last Taken Unknown] hydralazine 10 mg tablet 10 mg PO BID 03/21/23 [History Last Taken Unknown] azelastine 137 mcg (0.1 %) nasal spray aerosol 2 spray intranasal BID #30 mL 03/22/23 [Rx Last Taken Unknown] lorazepam 1 mg tablet (Ativan) 1 mg PO TID PRN anxiety #10 tabs 06/12/23 [Rx Last Taken Unknown] Allergy/AdvReac Type Severity Reaction Status Date / Time No Known Allergies Allergy Verified 03/21/23 22:05 Family History no significant family his Surgical History no surgical history Social History (Updated 06/12/23 @ 00:56 by Jessica Vargas) household members: spouse housing: house Smoking Status: Never smoker ROS ROS ED Review of Systems ROS Unobtainable: other Constitutional Constitutional ED: Reports lethargy; Denies chills, fever(s), sweats or weight loss Eyes Eyes: Denies blurry vision, change in vision or diplopia ENT ENT ED: Denies rhinorrhea or sore throat Cardiovascular Cardiovascular: Reports chest pain and racing heartbeat; Denies orthopnea Respiratory/Chest Respiratory/Chest: Reports dyspnea; Denies cough, dyspnea on exertion, orthopnea or sputum Gastrointestinal Gastrointestinal: Denies abdominal pain, diarrhea, nausea or vomiting Genitourinary Genitourinary ED: Denies dysuria, hematuria or urinary frequency Musculoskeletal Musculoskeletal: Denies arthralgias, back pain, myalgias or neck pain Integumentary Denies abscess, Abrasions or rash Neurologic Neurologic: Denies headache(s) or weakness Psychiatric Psychiatric: Denies anxiety, depression or suicidal thoughts Endocrine Endocrinology: Denies polydipsia, polyphagia or polyuria Hematologic/Lymphatic Hematologic/Lymphatic: Denies easy bleeding, easy bruising or lymphadenopathy Allergic/Immunologic Allergic/Immunologic ED: Denies mouth swelling, tongue swelling or urticaria EXAM Physical Exam Const Vital Signs: 06/12/23 00:51 06/12/23 00:53 06/12/23 00:56 Temperature 97.8 F 98.1 F Temperature Source Oral Temporal Pulse Rate 57 L 58 L Respiratory Rate 16 20 H Respiratory Effort Labored Blood Pressure 136/92 H 136/92 H Blood Pressure Mean 106 106 Pulse Ox 100 Oxygen Delivery Method Room Air Room Air 06/12/23 04:29 Temperature Temperature Source Pulse Rate 59 L Respiratory Rate 17 Respiratory Effort Blood Pressure Blood Pressure Mean Pulse Ox 98 Oxygen Delivery Method Positive well nourished and well developed General Appearance ED: well developed and NAD HEENT Reports TM's clear and moist mucous membranes normocephalic and atraumatic; Negative for trauma or tenderness Tympanic Membrane ED: Yes TM's clear Eyes PERRL and EOMs intact bilaterally General Eye ED: Negative for pale conjunctiva or scleral icterus Neck no lymphadenopathy, supple and no JVD General: Negative for tenderness Chest Wall inspection of chest normal and palpation of chest normal Chest: Negative for tenderness Resp normal respiratory effort and clear to auscultation bilaterally Effort and Inspection: Negative for respiratory distress or pain with movement Auscultation: Negative for rhonchi, wheezes or diminished lung sounds Cardio regular rate, regular rhythm, S1 normal heart sound, S2 normal heart sound and no murmurs Peripheral Pulses: pulses 2+ throughout GI normal to inspection, nondistended, normoactive bowel sounds, soft to palpation, non-tender, non-distended and no masses Back/Spine no CVA tenderness and no thoracic nor lumbar tenderness Extremity normal to inspection General Extremety ED: Negative for edema General Extremity: Negative for edema Neuro oriented x3, CN's II-XII intact bilaterally, no sensory deficits noted and gait normal Sensorium / Orientation: awake, alert, oriented to person, oriented to place and oriented to time Motor Exam: strength 5/5 throughout and strength abnormal Psych mental status grossly normal Skin no rashes or lesions noted and no wounds MDM MDM MDM Narrative Medical decision making narrative: Patient presents with heart racing and pressure in his head and dizziness. Multiple vague complaints which she has had in the past and has been evaluated for recently. Patient states that he went to [facility] 5 days ago and he describes a CTA of the head and neck and lab work and all was unremarkable. IV line established here. EKG obtained on arrival showed sinus rhythm with a rate of 59 bpm with no acute ST segment changes. Patient feels like his heart racing however he is actually bradycardic with heart rate in the 50s. CBC with differential obtained showed white count of 4.7 with hemoglobin 12 and platelet count of 170. Chemistries unremarkable. Initial troponin was 6. Delta troponin was 6. Patient was given Ativan 1 mg IV. Symptomatically he did feel improved after treatment. At this point etiology of his symptoms unclear. Suspect a component of anxiety. Patient not on any medications that would cause bradycardia. I will write him a prescription for Ativan as needed and referral to cardiology as he has had some bradycardia with rates into the 40s at times but essentially normal blood pressures. Lab Data Attestation: I reviewed the patient's lab results. Labs: Laboratory Results - last 24 hr 06/12/23 06/12/23 01:00 03:32 WBC 4.7 RBC 3.83 L Hgb 12.0 L Hct 36.6 L MCV 95.6 H MCH 31.3 MCHC 32.8 RDW Std Deviation 43.8 RDW Coeff of Torey 12.6 Plt Count 170 MPV 10.1 D-Dimer Quant (PE/DVT) 0.30 Sodium 138 Potassium 3.5 Chloride 109 H Carbon Dioxide 20.0 L Anion Gap 9 BUN 25 H Creatinine 0.94 Estim Creat Clear Calc 79.97 Est GFR (MDRD) Af Amer 103 Est GFR (MDRD) Non-Af 85 BUN/Creatinine Ratio 26.6 H Glucose 108 H Calcium 8.9 Troponin I High Sens 6 6 EKG Initial EKG: Attestation: I personally reviewed and interpreted this EKG as follows: Comments: Sinus bradycardia with rate of 59 bpm with no acute ST segment changes Discharge Plan Triage Chief Complaint: Palpitations ED Provider: Isabella Kohler Dx/Rx/DC Orders Clinical Impression: Heart palpitations, Anxiety Instructions: ED Anxiety Reaction, ED Bradycardia, ED Palpitations Prescriptions: New lorazepam [Ativan] 1 mg tablet 1 mg PO TID PRN (Reason: anxiety) Qty: 10 0RF No Action hydralazine 10 mg tablet 10 mg PO BID aspirin 81 mg capsule 81 mg PO DAILY azelastine 137 mcg (0.1 %) aerosol,spray 2 spray intranasal BID Qty: 30 2RF Rx Instructions: administer into each nostril Primary Care Provider: Blas Robb NP Referrals: Ramírez Telles MD [Med Staff - Active Staff] - 3-5 Days Blas Robb NP, HEAT TREAT INSPECTOR-C [Primary Care Provider] - Disposition Disposition: Home, Self Care Discharge Date/Time: 06/12/23 04:35
[2023-06-12 01:23] LABS: Hematocrit 36.6 % (40-54); Mean Corp Hgb Conc 32.8 g/dL (32-36); Mean Corpuscular Hgb 31.3 pg (27.0-32.0); Mean Corpuscular Volume 95.6 fL (80-94); Mean Platelet Vol. 10.1 fl (6.2-12.0); Platelet Count 170 K/mm3 (150-450); RBC Distribution Width CV 12.6 % (11.6-14.6); RBC Distribution Width SD 43.8 fl (35.1-43.9); Red Blood Count 3.83 M/mm3 (4.6-6.2); White Blood Count 4.7 K/mm3 (4.4-11.0)
[2023-06-12] MEDS: LORazepam 2 MG/ML Syringe 1 MG IV (01:24)
[2023-06-12] MEDS: Aspirin 81 MG TAB.CHEW 162 MG PO (01:24)
[2023-06-12 01:41] LABS: Anion Gap 9 (5-15); BUN 25 mg/dL (7-18); BUN/Creat Ratio 26.6 RATIO (10-20); Calcium,Total 8.9 mg/dL (8.5-10.1); Chloride 109 mmol/L (98-107); Creatinine, Serum 0.94 mg/dL (0.70-1.30); EST Glomerular Filtration Rate 85 mL/min (>60); Est Glom Filt Rate - Afr Amer 103 mL/min (>60); Estimated Creatinine Clearance 79.97 ml/min; Glucose 108 mg/dL (74-106); Potassium 3.5 mmol/L (3.5-5.1); Sodium Level 138 mmol/L (136-145); Troponin-I HS 6 pg/mL (3.0-78.0)
[2023-06-12 04:13] LABS: Troponin-I HS 6 pg/mL (3.0-78.0)
[2023-06-12 04:29] VITALS: PULSE 59; RESP 17; O2SAT 98
== END 2023-06-12 04:35 | disposition home or self-care (01) ==
PROVIDERS: Emergency Provider Emergency Medicine; PCP Nurse Practitioner Family; Visit Provider Emergency Medicine
DX: R00.2 Palpitations (principal); F41.9 Anxiety disorder, unspecified
CPT/HCPCS: 80048; 84484; 85027; 85379; 93005; 96374; 99284

== ENCOUNTER → 2023-07-31 | Outpatient (CLI) | payer OTHER, SELFPAY ==
--- OUTSIDE RECORDS SUMMARY | 2023-07-31 08:51 | XMS RPT_ITS | CCD ---
Author Name Unknown Address [address] [place] [address] Organization [facility] Care Team Providers Care Oracle Forms Developer Name Role Phone FLORI WATTS, JO ANN Primary Care Physician [phone] CLOVER GARCIA, SOHAN Hein Attending Unavailable JO ANN BARRAZA Primary Care Unavaildavid LAMBERT MD, DR ANA Correa Attending GERDA Stringer APRN, CNP Primary Care U puja HARE MD, DR PRICE Attending GERDA Leigh APRN, CNP Primary Care U puja Medications Current Medications Medication Drug Class(es) Dates [...] BID, # 60 tab(s), 6 Refill(s), Pharmacy: [facility], 172.7, cm, 03/17/23 10:24:00 EDT, Height, [...] Pressure Non-Invasive 85 mm[Hg] SOHAN GALO MD [facility] 06-07-2023 10:04-0500 Heart rate 52 /min SOHAN GALO MD [facility] 06-07-2023 10:04-0500 Mean blood pressure 101 mm[Hg] SOHAN GALO MD [facility] 06-07-2023 10:04-0500 Respiratory rate 12 /min SOHAN GALO MD [facility] 06-07-2023 10:04-0500 Systolic Blood Pressure Non-Invasive 133 mm[Hg] SOHAN GALO MD [facility] 06-07-2023 09:14-0500 Blood Pressure Method SOHAN GALO MD [facility] 06-07-2023 09:14-0500 Diastolic Blood Pressure Non-Invasive 89 mm[Hg] SOHAN GALO MD [facility] 06-07-2023 09:14-0500 Heart rate 50 /min SOHAN GALO MD [facility] 06-07-2023 09:14-0500 Mean blood pressure 108 mm[Hg] SOHAN GALO MD [facility] 06-07-2023 09:14-0500 Respiratory rate 16 /min SOHAN GALO MD [facility] 06-07-2023 09:14-0500 Systolic Blood Pressure Non-Invasive 148 mm[Hg] SOHAN GALO MD [facility] 06-07-2023 07:37-0500 Blood Pressure Location SOHAN GALO MD [facility] 06-07-2023 07:37-0500 Blood Pressure Method SOHAN GALO MD [facility] 06-07-2023 07:37-0500 Body height 170.2 cm SOHAN GALO MD [facility] 06-07-2023 07:37-0500 Body temperature 96.98 [degF] SOHAN GALO MD [facility] 06-07-2023 07:37-0500 Body weight 84.1 kg SOHAN GALO MD [facility] 06-07-2023 07:37-0500 Diastolic Blood Pressure Non-Invasive 95 mm[Hg] SOHAN GALO MD [facility] 06-07-2023 07:37-0500 Heart rate 55 /min SOHAN GALO MD [facility] 06-07-2023 07:37-0500 Respiratory rate 16 /min SOHAN GALO MD [facility] 06-07-2023 07:37-0500 Systolic Blood Pressure Non-Invasive 163 mm[Hg] SOHAN GALO MD [facility] Encounters Encounter Date Encounter Type Care Provider Facility Start: 06-07-2023 End: 06-07-2023 Emergency department patient visit SOHAN GALO MD Facility:B Start: 06-07-2023 End: 06-07-2023 Emergency department patient visit SOHAN GALO MD [facility] Start: 03-23-[address] DEE HARE MD F acility:B Start: 03-06-2023 End: 03-06-2023 Emergency department patient visit DR ANA LAMBERT MD Facility:B Payers Date Payer Category Payer Self-pay 1955 Unknown [id number] 1955 Unknown [id number] 1955 Unknown [id number] Social History Date Type Detail Facility Start: 03-17-2023 Tobacco smoking status Never s moked tobacco (finding) [facility] CV Sex Assigned At Male [facility] Functional Status Date Assessment Result Facility 06-07-2023 Functional Status Independent [facility] 06-07-2023 Functional Status Independent [facility] 06-07-2023 Functional Status ID band on, Allergy Band on, Call device within reach, Bed in low position, Wheels locked [facility] Mental Status Date Assessment Result Facility 06-07-2023 Mental Status Orientation Oriented x 4 [facility] 01-08-2024 Mental Status [facility] Discharge instructions 06-07-2023 Note Date & Type [...] when standing up too quickly or straining [id number] [employer]. [address] [place] [address], [place] [address]. All rights reserved. This information is not [...] about: All medicines you take, including prescription, ptdt-hew-jaihpgd, herbs, and supplements Any other symptoms you [...] Chest, arm, neck, back, or jaw pain 2252-3[address] [employer] [address] [place] [address]. All rights reserved. This information is not intended as a substitute for professional medical care. Always follow your healthcare professional's instructions. Follow Up Care 06/07/2023 07:30:37 With:DEE HARE MD Address: [facility] [place] [address] [phone] When:2-4 days With:JO ANN RUBY Address: [address] [place] [phone] [phone] When:2-[address] [facility] Clinical Note 06-07-2023 Note Date & Type Note Facility 06-07-2023 Note Discharge Instructions Thank you for allowing [facility] to assist you with your healthcare needs. [...] MD When Within 2-4 days Where: [address] [address] [phone] Follow Up with JO ANN RUBY When Within 2-4 days Where: [address] [place] [phone] Allergies NKA Medications Please ask your primary [...] may report side effects to FDA at 7-731-EWM-4958. What other drugs will affect hydralazine? Tell your doctor about all your current medicines and any you start or stop using, especially: diazoxide (an injectable blood pressure medication); or an MAO inhibitor--isocarboxazid, linezolid, methylene blue injection, phenelzine, rasagiline, selegiline, tranylcypromine, and others. This list is not complete. Other drugs may interact with hydralazine, including prescription and dumj-taa-hgsmazs medicines, vitamins, and herbal products. Not all [...] to ensure that the information provided by [employer] ('[employer]') is accurate, up-to-date, and complete, but no guarantee is made to that effect. Drug information contained herein may be time sensitive. [employer] information has been compiled for use by healthcare practitioners and consumers in the [place] and therefore [employer] does not warrant that uses outside of the [place] are appropriate, unless specifically indicated otherwise. [employer]'s drug information does not endorse drugs, diagnose patients or recommend therapy. Specialist Resources [employer] drug information is an informational resource designed [...] effective or appropriate for any given patient. [employer] does not assume any responsibility for any aspect of healthcare administered with the aid of information [employer] provides. The information contained herein is not intended to cover all possible uses, directions, precautions, warnings, drug interactions, allergic reactions, or adverse effects. If you have questions about the drugs you are taking, check with your doctor, nurse or pharmacist. Copyright 1829-0210 [employer]. Version: 7.01. Revision Date: 01/01/2023. Education Materials [...] when standing up too quickly or straining [id number] [employer] [address] [place] [address], [place] [address]. All rights reserved. This information is not intended as a substitute for professional medical care. Always follow your healthcare professional's instructions. Dizziness (Uncertain Cause) Dizziness is a common symptom. It may be described as lightheadedness, spinning, or feeling like you are going to faint. Dizziness can have many causes. Be sure to tell the healthcare provider about: All medicines you take, including prescription, hwgp-znj-gidieto, herbs, and supplements Any other symptoms you [...] Chest, arm, neck, back, or jaw pain 4692-15[address] [employer] [address] [place] [address], [place] [address]. All rights reserved. This information is not intended as a substitute for professional medical care. Always follow your healthcare professional's instructions. Additional Information VACCINATE! IT SAVES LIVES! Members of the community who have not yet received the COVID-19 vaccine and would like to receive it can visit one of [facility] vaccine clinics. There are many vaccine clinic locations within the [facility]. For locations and available times, please visit www.gettheshot.coronavirus.[place].gov/. It is important to note that some COVID mobile vaccine clinics are held outdoors and may be canceled in rainy or stormy conditions. To learn more about pediatric vaccinations (ages 5-11), we invite you to visit the [facility] webpage. https://www.[email or web address].org/pages/2 253-Qwnfk-Mbuuiyzcmdo-Frequently-Asked -Questions.html To learn more about the COVID-19 vaccine, we invite you to visit the CDC website for a list of frequently asked questions. https://www.cdc.gov/coronavirus/2019-n cov/vaccines/faq.html [facility] Patient Portal Access Instructions: Stay connected with your healthcare team and access your personal medical information anytime with the [facility] Patient Portal. If you would like a full copy of your medical records please contact the [facility] Medical Records Department Wednesday through Wednesday between 8a.m. and 4:30p.m. Please follow the directions below to access the portal: 1.Access the email account you provided upon registration to the hospital.2.Look for an invitation email from [facility].3.Open the email and access the invitation link: Accept Invitation to [facility]4.Fill in the required angulo to create your account. Sign into www.[employer] with your username and password that you [...] you will allow to register on the [facility] Patient Portal for access to your information. You can also access the [facility] Patient Portal on the [employer] machelle. Simply click on Health Records under Health Data and then click on the [facility] logo. HOW TO SAFELY DISPOSE OF PRESCRIPTION [...] Call your local pharmacy or go to http://GKN - GloboKasNet.Locomizer/8L4Qi6e to find one close to you.3.Make use of household items: Use cat litter or old coffee grounds to dispose medications if other options are not available. Mix your drugs with these household products, seal them in an airtight container and throw it into the garbage. Call [facility]: [phone] to be sure your drugs can be [...] aware that I should contact my doctor. Patient/Medical Office Scheduler Signature: _ Date/Time: Relationship to Patient: Witness Name/Signature: Date/Time: [facility] Clinical Note 06-07-2023 Note Date & [...] 06/07/2023 9:35:02 AM Ordering Provider: SOHAN GALO [facility] Clinical Note 06-07-2023 Note Date & [...] Date: 06/07/2023 9:43:21 AM Ordering Provider: SOHAN [facility] Clinical Note 06-07-2023 Note Date & Type [...] mass effect. Ventricular caliber is age appropriate. Preeira-white differentiation appears maintained without CT evidence of [...] 06/07/2023 9:30:30 AM Ordering Provider: SOHAN GALO [facility] Clinical Note 06-07-2023 Note Date & Type Note Facility 06-07-2023 Note Sinus rhythm Borderline left axis deviation RSR' in V1 or V2, probably normal variant Baseline wander in lead(s) V1 Electronic Signature: SOHAN GALO MD 06/07/2023 08:31:[address] [facility] Evaluation + Plan note 03-23-2023 Radiology Note Date & Type Note Facility 03-23-2023 Evaluation + Plan note Future Scheduled TestsNM Myocardial Spect Rest/Stress 03/23/[address] [facility] Hospital course Narrative Note Date & Type Note Facility Hospital course Narrative No data available for this section [facility] Summary Purpose Family History No Family History Records Found Advance Directives No Advanced Directives Records Found Additional Source Comments Patient Care team informatio n (unrecognized section and content) Care Team Personnel Name: FLORIJENNYJO ANNJOSUE WATTS Position: P4 Advanced Dispensary Technician Member Role: Primary Care Physician Address: Address: [address] [place] [address] [facility] [place] [address]- [place] Name: SOHAN GALO MD Position: ED Physician Member Role: ED Physician Address: Address: [facility] [address] [place] [id number] Name: Marlee Rosenberg RN Position: AO RN Member Role: ED RN Care Team Related Persons Name: NONE, NONE (unrecognized sect ion and content) No Status Records Found INFORMATION SOURCE (unrecogn ized section and content) FOR RECORDS PERTAINING TO PATIENTS WHO ARE [...] BE BASED ON THE PRIMARY CLINICAL RECORDS. [facility]. provides no warranty or guarantee of the accuracy or completeness of information in this document.
[2023-07-31 10:11] LABS: Anion Gap 0 (5-15); BUN 21 mg/dL (7-18); BUN/Creat Ratio 20.4 RATIO (10-20); Calcium,Total 9.3 mg/dL (8.5-10.1); Chloride 111 mmol/L (98-107); Creatinine, Serum 1.03 mg/dL (0.70-1.30); EST Glomerular Filtration Rate 77 mL/min (>60); Est Glom Filt Rate - Afr Amer 93 mL/min (>60); Glucose 98 mg/dL (74-106); Potassium 5.2 mmol/L (3.5-5.1); Sodium Level 139 mmol/L (136-145); Thyroid Stim Hormone (TSH) 2.42 uIU/mL (0.358-3.74)
== END | disposition home or self-care (01) ==
LOC: LAB 08:49
PROVIDERS: PCP Nurse Practitioner Family; Referring Provider Internal Medicine Cardiovascular Disease; Visit Provider Internal Medicine Cardiovascular Disease
DX: R00.2 Palpitations (principal); R00.1 Bradycardia, unspecified; R55 Syncope and collapse; I10 Essential (primary) hypertension
CPT/HCPCS: 36415; 80048; 84443

== ENCOUNTER → 2023-10-02 | Outpatient (CLI) | payer OTHER, SELFPAY ==
[2023-10-02 08:47] LABS: Anion Gap 2 (5-15); BUN 32 mg/dL (7-18); BUN/Creat Ratio 30.8 RATIO (10-20); Calcium,Total 9.1 mg/dL (8.5-10.1); Chloride 111 mmol/L (98-107); Creatinine, Serum 1.04 mg/dL (0.70-1.30); EST Glomerular Filtration Rate 76 mL/min (>60); Est Glom Filt Rate - Afr Amer 92 mL/min (>60); Glucose 100 mg/dL (74-106); Potassium 4.9 mmol/L (3.5-5.1); Sodium Level 140 mmol/L (136-145)
== END | disposition home or self-care (01) ==
LOC: LAB 07:41
PROVIDERS: PCP Nurse Practitioner Family; Referring Provider Physician Assistant Medical; Visit Provider Physician Assistant Medical
DX: E87.5 Hyperkalemia (principal)
CPT/HCPCS: 36415; 80048

== ENCOUNTER → 2023-12-17 | Outpatient (CLI) | payer OTHER, SELFPAY ==
--- NOTE | 2023-12-17 06:34 | ECHOD_ITS ---
Reason For Study: BRADYCARDIA/ PALPS/ NEAR SYNCOPE Procedure This was a 2D Doppler, Color Flow transthoracic echocardiogram. Exam performed in department. Left Ventricle Normal size and thickness. The left ventricular ejection fraction is 60 %. Normal diastology for age. Right Ventricle Normal right ventricle. Atria The left and right atria are normal. Mitral Valve Mild-Moderate (1-2+) mitral valve insufficiency. Tricuspid Valve Trivial tricuspid valve insufficiency. Unable to estimate RV systolic pressure due to insufficient tricuspid regurgitant envelope. Aortic Valve Trisinus/trileaflet aortic valve. Mild-Moderate (1-2+) aortic valve insufficiency. Pulmonic Valve The pulmonic valve is not well visualized. Great Vessels Mildly dilated aortic root. Pericardium/Pleural No pericardial effusion. MMode/2D Measurements & Calculations LVIDd: 4.7 cm IVSd: 0.95 cm LVOT diam: 2.1 cm LVIDs: 2.7 cm LVPWd: 0.97 cm LVOT area: 3.6 cm2 RVDd: 4.2 cm FS: 43.1 % Ao root diam: 3.7 cm LAV(MOD-bp): 49.7 ml LVAd ap4: 28.7 cm2 LAV(MOD-bp) Indexed: 25.2 ml/m2 LVLd ap4: 7.9 cm LAV(MOD-sp2): 64.9 ml EDV(MOD-sp4): 85.4 ml LAV(MOD-sp4): 34.9 ml EDV(sp4-el): 88.6 ml LVAs ap4: 13.0 cm2 LVLs ap4: 6.0 cm ESV(MOD-sp4): 23.5 ml ESV(sp4-el): 23.9 ml EF(MOD-sp4): 72.5 % EF(sp4-el): 73.0 % LVAd ap2: 27.3 cm2 SV(MOD-sp4): 61.9 ml SV(MOD-sp2): 55.6 ml LVLd ap2: 7.9 cm EDV(MOD-sp2): 78.2 ml EDV(sp2-el): 80.2 ml LVAs ap2: 12.8 cm2 LVLs ap2: 6.2 cm ESV(MOD-sp2): 22.6 ml ESV(sp2-el): 22.6 ml EF(MOD-sp2): 71.1 % SV(sp4-el): 64.6 ml LA dimension(2D): 3.5 cm LA A4 area: 15.2 cm2 RA A4 area: 14.3 cm2 TAPSE: 2.3 cm Time Measurements MV dec time: 0.19 sec Doppler Measurements & Calculations MV E max heath: 67.9 cm/sec Lat Peak E' Heath: 11.0 cm/sec Med Peak E' Heath: 10.0 cm/sec MV A max heath: 70.5 cm/sec E/E' lat: 6.1 E/E' med: 6.8 MV E/A: 0.96 Ao V2 max: 124.9 cm/sec LV V1 max: 105.8 cm/sec MV dec slope: 360.1 cm/sec2 Ao max P.2 mmHg LV V1 max P.5 mmHg Ao V2 mean: 82.9 cm/sec LV V1 mean P.3 mmHg Ao mean P.2 mmHg LV V1 mean: 72.1 cm/sec Ao V2 VTI: 31.2 cm LV V1 VTI: 24.1 cm AV (velocity ratio): 0.77 ULI(I,D): 2.8 cm2 ULI(V,D): 3.0 cm2 SV(LVOT): 86.8 ml PA V2 max: 75.6 cm/sec PA max PG (full): 0.63 mmHg ECHO/Echo Complete Interpretation Summary The left ventricular ejection fraction is 60 %. Mild-Moderate (1-2+) mitral valve insufficiency. Mild-Moderate (1-2+) aortic valve insufficiency. Mildly dilated aortic root. Ordering Physician: Hillary Cedillo Referring Physician: Hillary Cedillo Performed By: Jania Bell RDCS
--- NOTE | 2023-12-17 13:52 | STRESSREP ---
Stress Test Report Date: 12/17/2023 ? Procedure: Exercise tolerance test/imaging study ? Indications: Bradycardia ? Consent: Per the patient ? Procedure: ? The patient exercised on a Terry protocol for 7 minutes and 46 seconds achieving a peak heart rate of 125 bpm ( 81% predicted maximal heart rate) with a peak blood pressure 160/84 mmHg and a peak MET capacity of 10.1 METs. ? The baseline ECG demonstrated sinus bradycardia.? The peak exercise ECG demonstrated sinus tachycardia with no ischemic changes. ? Frequent PVCs noted during exercise. ? The functional capacity was considered average.. ? There was no complaint of chest discomfort during exercise or recovery. ? The examination was discontinued secondary to dyspnea. ? The patient was injected with 11.1 mCi of technetium 99m Cardiolite and subsequently rest SPECT Cardiolite nuclear imaging was obtained in the horizontal long, vertical long, and short axis views. Post-exercise, the patient was injected with 34.3 mCi of technetium 99m Cardiolite and subsequently stress SPECT Cardiolite nuclear imaging was obtained in the horizontal long, vertical long, and short axis views.? A gated Cardiolite study at peak stress was obtained. ? Rest and stress SPECT Cardiolite nuclear imaging status post realignment, normalization, and attenuation correction, demonstrates the appearance of relative uniform tracer uptake and myocardial perfusion appearing within normal limits.? There is end systolic thickening and brightening.? The gated Cardiolite study demonstrates myocardial thickening and inward wall motion.? The reported LVEF is 64%. ? Impression: ? 1.? Technically adequate exercise tolerance test 2.? Peak exercise ECG with no ischemic changes 3. Frequent PVCs with exercise 4.? Rest and stress SPECT Cardiolite nuclear imaging demonstrate relative uniform tracer uptake and myocardial perfusion appearing within normal limits 5.? The gated Cardiolite study reports an LVEF of 64%.
== END | disposition home or self-care (01) ==
PROVIDERS: PCP Nurse Practitioner Family; Referring Provider Nurse Practitioner Gerontology; Visit Provider Nurse Practitioner Gerontology
DX: R55 Syncope and collapse (principal); R94.31 Abnormal electrocardiogram [ECG] [EKG]; R00.2 Palpitations; I10 Essential (primary) hypertension; R00.1 Bradycardia, unspecified
CPT/HCPCS: 78452; 93017; 93306; A9500; A4216

== ENCOUNTER 2024-06-16 22:16 | Emergency (ER) | payer OTHER, SELFPAY ==
[2024-06-16 22:16] VITALS: BP 111/71; PULSE 64; RESP 25; TEMP 37.6; O2SAT 95; BMI 29.7
[2024-06-16 23:09] LABS: Absolute Neutrophil Count 2.4 X10^3/uL (2.0-7.7); Basophil# 0.02 X10^3/uL; Basophil% 0.5 % (0-1); Eosinophil# 0.01 X10^3/uL; Eosinophils% 0.3 % (0-5); Hematocrit 38.5 % (40-54); Lymphocyte % 18.6 % (19-41); Mean Corp Hgb Conc 33.8 g/dL (32-36); Mean Corpuscular Hgb 31.4 pg (27.0-32.0); Mean Platelet Vol. 9.7 fl (6.2-12.0); Monocyte% 15.9 % (0-10); NRBC Flagged by Analyzer 0 % (0-5); Neutrophil # 2.42 X10^3/uL (2.7-7.7); Neutrophil % 64.2 % (47-70); Platelet Count 183 K/mm3 (150-450); RBC Distribution Width SD 44.2 fl (35.1-43.9); Red Blood Count 4.14 M/mm3 (4.6-6.2); White Blood Count 3.8 K/mm3 (4.4-11.0)
[2024-06-16] MEDS: 0.9% Normal Saline (1000mL) 1,000 ML 999 ML IV (23:24)
[2024-06-16] MEDS: Acetaminophen 500 MG Tablet 1000 MG PO (23:25)
--- NOTE | 2024-06-16 23:34 | RAD_ITS ---
EXAM: XR CHEST, 2 VIEWS CLINICAL INDICATION: cough TECHNIQUE: Frontal and lateral views of the chest. COMPARISON: 03/21/2023 FINDINGS: LUNGS AND PLEURAL SPACES: Subtle bibasilar pulmonary opacities may be atelectasis or pneumonia particularly in the right lower lobe. No pneumothorax. No effusion. HEART: No significant abnormality. Cardiac silhouette not enlarged. MEDIASTINUM: Central airways and mediastinal contour are unremarkable. BONES/JOINTS: No significant abnormality. No acute fracture. SOFT TISSUES: No significant abnormality. RAD/Chest PA and Lateral IMPRESSION: Subtle bibasilar pulmonary opacities may be atelectasis or pneumonia particularly in the right lower lobe. Electronically Signed: Reij Hillman DO at 23:53 EST ,
[2024-06-16 23:43] LABS: Anion Gap 6 (5-15); BUN 21 mg/dL (7-18); BUN/Creat Ratio 19.8 RATIO (10-20); Calcium,Total 8.8 mg/dL (8.5-10.1); Chloride 108 mmol/L (98-107); Creatinine, Serum 1.06 mg/dL (0.70-1.30); EST Glomerular Filtration Rate 74 mL/min (>60); Est Glom Filt Rate - Afr Amer 89 mL/min (>60); Estimated Creatinine Clearance 72.23 ml/min; Glucose 109 mg/dL (74-106); Sodium Level 138 mmol/L (136-145)
[2024-06-17 00:16] VITALS: BP 124/74; PULSE 60; RESP 24; O2SAT 92
--- NOTE | 2024-06-17 01:03 | EX.ED.DYSGE1 ---
HPI History of Present Illness Chief Complaint: Syncope Informant: patient and family Narrative Narrative: Patient is a 69-year-old male with past medical history of hypertension. He states for the last 24 hours or so he has had increased fatigue and generalized weakness with mild congestion and cough. Patient states he was sitting in his chair earlier today because of his symptoms and folic his heart was racing and family states that they went to take his temperature and realized that he had passed out. Family states this only lasted for a few seconds and they deny any seizure-like activity. However because of his sick symptoms and the apparent syncopal event he was brought in for evaluation [facility] Medical History Weakness Near syncope Palpitations Anxiety and depression Lightheadedness Bradycardia Eustachian tube dysfunction Hypertension Home Medications ?Medication ?Instructions ?Recorded ?Last Taken ?Type losartan 25 mg tablet 25 mg PO DAILY #90 tabs 05/03/24 Unknown Rx oseltamivir 75 mg capsule (Tamiflu) 75 mg PO BID 5 days #10 caps 06/17/24 Unknown Rx prednisone 20 mg tablet 20 mg PO DAILY 5 days #5 tabs 06/17/24 Unknown Rx Allergy/AdvReac Type Severity Reaction Status Date / Time No Known Allergies Allergy Verified 06/16/24 22:21 Family History Mother Paroxysmal atrial fibrillation Father Anemia Social History household members: spouse housing: house Smoking Status: Never smoker alcohol intake: never substance use type: does not use caffeine: Yes Type: coffee Number of servings: 4 ROS ROS ED Constitutional Constitutional ED: Reports chills, fever(s) and subjective Eyes Eyes: Denies change in vision ENT ENT ED: Reports rhinorrhea and sore throat Cardiovascular Cardiovascular: Reports palpitations, racing heartbeat and other Details: Positive syncope ; Denies chest pain Respiratory/Chest Respiratory/Chest: Reports cough; Denies dyspnea Gastrointestinal Gastrointestinal: Denies abdominal pain, diarrhea, nausea or vomiting Genitourinary Genitourinary ED: Denies dysuria Musculoskeletal Musculoskeletal: Reports myalgias Integumentary Denies rash Neurologic Neurologic: Reports weakness; Denies headache(s) or paresthesias Hematologic/Lymphatic Hematologic/Lymphatic: Denies easy bleeding or easy bruising Allergic/Immunologic Allergic/Immunologic ED: Denies mouth swelling or tongue swelling EXAM Physical Exam Const Vital Signs: 06/16/24 22:16 06/17/24 00:16 06/17/24 01:13 Temperature 99.7 F H 98.7 F Temperature Source Oral Pulse Rate 64 60 62 Respiratory Rate 25 H 24 H 25 H Respiratory Effort Blood Pressure 111/71 124/74 H 123/75 H Blood Pressure Mean 84 90 91 Pulse Ox 95 92 94 Oxygen Delivery Method Room Air Room Air 06/17/24 01:13 Temperature Temperature Source Pulse Rate Respiratory Rate Respiratory Effort Normal Blood Pressure Blood Pressure Mean Pulse Ox Oxygen Delivery Method Positive well nourished and well developed General Appearance ED: well developed; Negative for pallor HEENT Reports dry mucous membranes HEENT Narrative: Mucous membranes are mildly dry and tacky No tongue or lip swelling no oral lesions no airway edema or compromise There is cobblestoning in the posterior pharynx consistent with sinus drainage; no secondary findings to suggest infection No tongue or cheek biting to suggest seizure activity Mouth ED: Yes dry mucous membranes Mouth: dry mucous membranes Eyes PERRL and EOMs intact bilaterally General Eye ED: Negative for scleral icterus Neck supple Neck Narrative: No nuchal rigidity or meningeal signs Resp normal respiratory effort Resp Narrative: Breath sounds are slight diminished throughout with faint rhonchi in the bilateral bases but without signs of respiratory distress Cardio regular rate and regular rhythm Rate: other Other Details: Heart is regular rate and rhythm without murmurs rubs or gallop Radial and carotid pulses are equal and symmetric GI normal to inspection, nondistended, normoactive bowel sounds, non-tender, non-distended and no masses Auscultation: normoactive bowel sounds Palpation: soft Extremity normal to inspection Extremity Narrative: No asymmetric edema no pitting edema negative Homans' sign bilaterally Neuro oriented x3, CN's II-XII intact bilaterally and no sensory deficits noted Neuro Narrative: GCS of 15 Cranial nerves II through XII are grossly intact without focal neurologic deficit No pronator drift no dysmetria no truncal ataxia NIH stroke scale score of 0 Sensorium / Orientation: alert Motor Exam: strength 5/5 throughout Psych mental status grossly normal Skin no rashes or lesions noted Skin Narrative: Skin turgor is mildly increased General Skin Exam: Negative for jaundice or pallor MDM MDM MDM Narrative Medical decision making narrative: Patient arrived to the ER with low-grade fever but otherwise stable vitals. He reported roughly 24 hours of generalized fatigue/malaise with congestion and cough. Differential diagnosis is for viral infection such as COVID versus influenza versus RSV. There is concern he may have developed a potential pneumonia or went into a cardiac dysrhythmia as he reported palpitations prior to his syncopal event. He does not have tongue or cheek biting to suggest seizure activity and family denies any tonic-clonic seizure-like event going against this. He is not on a blood thinner he did not strike his head he does not have a headache and his neurologic exam is normal so I feel no need for head CT. EKG showed sinus rhythm without ischemic findings or ectopy. He was on the monitor for his entire ER stay and there was no cardiac dysrhythmia noted. Blood work reveals no signs of acute blood loss anemia acute kidney injury or severe electrolyte abnormality. Viral swab was positive for influenza A which would correlate with his congestion and generalized fatigue. His physical exam does show mild dehydration changes which would also correlate with his viral syndrome. The chest x-ray question atelectasis versus developing pneumonia. Clinically I feel he has more atelectasis but even if this is developing pneumonia this would be viral in nature based on his positive influenza swab and would not require antibiotics. Moreover he is not hypoxic or in respiratory distress nor does he have septic changes and therefore does not require admission at this time. Based on the patient's symptoms he was given a liter of fluid Tylenol for potential fever reduction and remained hemodynamically stable without any further bouts of syncope in the ER. Therefore with overall negative workup no signs of sepsis or respiratory distress and reason for the patient's generalized fatigue and mild dehydration and the fact he has influenza A I do feel he can be discharged at this time and can follow-up on an outpatient basis. Patient and family do understand they can return to the hospital if his symptoms worsen despite outpatient treatment or to have any further concerns History & Record Review Discussion w/independent historian: Patient and Family Lab Data Attestation: I reviewed the patient's lab results. Labs: Laboratory Results - last 24 hr 06/16/24 22:05 WBC 3.8 L RBC 4.14 L Hgb 13.0 Hct 38.5 L MCV 93.0 MCH 31.4 MCHC 33.8 RDW Std Deviation 44.2 H RDW Coeff of Torey 13.0 Plt Count 183 MPV 9.7 Immature Gran % (Auto) 0.500 Neut % (Auto) 64.2 Lymph % (Auto) 18.6 L [place] % (Auto) 15.9 H Eos % (Auto) 0.3 Baso % (Auto) 0.5 Absolute Neuts (auto) 2.4 Absolute Lymphs (auto) 0.70 L Nucleated RBC % 0 Sodium 138 Potassium 4.0 Chloride 108 H Carbon Dioxide 24.0 Anion Gap 6 BUN 21 H Creatinine 1.06 Estim Creat Clear Calc 72.23 Est GFR (MDRD) Af Amer 89 Est GFR (MDRD) Non-Af 74 BUN/Creatinine Ratio 19.8 Glucose 109 H Calcium 8.8 Magnesium 2.0 TSH 1.010 Radiography Diagnostic Testing: Clinical Impression(s) from Imaging Studies Chest X-Ray 06/16/24 23:34 IMPRESSION: Subtle bibasilar pulmonary opacities may be atelectasis or pneumonia particularly in the right lower lobe. Electronically Signed: Reji Hillman DO at 23:53 EST , Chest x-ray as interpreted by the emergency medicine physician reveals hazy pulmonary opacities in the bilateral bases most consistent with atelectasis Discharge Plan Triage Chief Complaint: Syncope ED Provider: Dima Cleaning Dx/Rx/DC Orders Clinical Impression: Influenza A, Hypertension, Mild dehydration, Syncope Instructions: ED Influenza (Adult), ED Fainting, Uncertain Cause Prescriptions: New prednisone 20 mg tablet 20 mg PO DAILY 5 Days Qty: 5 0RF oseltamivir [Tamiflu] 75 mg capsule 75 mg PO BID 5 Days Qty: 10 0RF No Action losartan 25 mg tablet 25 mg PO DAILY Qty: 90 3RF Primary Care Provider: Blas Robb NP Referrals: Blas Robb [employer], [employer]-C [Primary Care Provider] - Activity Restrictions/Additional Instructions: You tested positive for influenza A. This is a viral infection that will need to run its course and last anywhere from 5 to 14 days with the average being 7 to 10 days. You may have a fever during the entire time and feel rundown tired and weak. Continue with Tylenol and/or Motrin for fever control use the steroid as directed to reduce inflammation and take the Tamiflu to help resolve the infection faster. Keep yourself well-hydrated and return to the ER if you have any further concerns or worsening of symptoms Print Language: Croatian Disposition Disposition: Home, Self Care Discharge Date/Time: 06/17/24 01:17
[2024-06-17 01:13] VITALS: BP 123/75; PULSE 62; RESP 25; TEMP 37.1; O2SAT 94
== END 2024-06-17 01:17 | disposition home or self-care (01) ==
PROVIDERS: Emergency Provider Emergency Medicine; PCP Nurse Practitioner Family; Visit Provider Emergency Medicine
DX: J10.1 Influenza due to other identified influenza virus with other respiratory manifestations (principal); E86.0 Dehydration; R55 Syncope and collapse; I10 Essential (primary) hypertension; Z79.899 Other long term (current) drug therapy

== ENCOUNTER 2024-06-19 08:05 | Emergency (ER) | payer OTHER, SELFPAY ==
[2024-06-19 08:06] VITALS: BP 125/81; PULSE 61; RESP 23; TEMP 36.2; O2SAT 99; BMI 29.9
[2024-06-19 08:13] VITALS: O2SAT 99
--- NOTE | 2024-06-19 08:22 | EKG12_ITS ---
Test Reason : SOB Blood Pressure : */* mmHG Vent. Rate : 63 BPM Atrial Rate : 63 BPM P-R Int : 158 ms QRS Dur : 100 ms QT Int : 412 ms P-R-T Axes : -14 -12 19 degrees QTcB Int : 421 ms Normal sinus rhythm Normal ECG Confirmed by RORO GARCIA, MICHELE ([id number]), editorial project manager NOLVIA HARVEY ([id number]) on 06/26/2024 2:23:35 PM Referred By: SADE Confirmed By: MICHELE READ MD
--- NOTE | 2024-06-19 08:22 | RAD_ITS ---
STUDY: X-RAY CHEST REASON FOR EXAM: Male, 69 years old. Diagnosed with pneumonia on Wednesday TECHNIQUE: PA and lateral views of the chest. COMPARISON: Comparison is made with prior study dated December 14, 2024. FINDINGS: EKG electrodes are seen. Mild residual increased markings at the left lung base although there has been improvement. Blunting of the left costophrenic angle. Normal size heart. Normal mediastinum and maureen. There is prominence of the pulmonary hilar arteries without peripheral pulmonary vascular congestion, suggesting pulmonary hypertension. There is atherosclerotic calcification of the aortic arch with tortuosity. There are degenerative changes of the visualized thoracic spine. Normal visualized ribs, clavicles, and shoulders. There is no demonstrated abnormality of the visualized soft tissue structures of the upper abdomen. RAD/Chest PA and Lateral IMPRESSION: Mild residual increased markings at the left lung base although there has been improvement as compared to prior study. There is blunting of the left costophrenic angle. Electronically Signed: Deo Kuhn MD at 9:43 EST ,
[2024-06-19 08:33] LABS: Absolute Lymphocyte Count 0.92 X10^3/uL (0.83-4.51); Absolute Neutrophil Count 2.8 X10^3/uL (2.0-7.7); Basophil# 0.01 X10^3/uL; Basophil% 0.2 % (0-1); Hematocrit 42.9 % (40-54); Hemoglobin 14.8 g/dL (13.0-16.5); Lymphocyte # 0.92 X10^3/ul (0.83-4.51); Lymphocyte % 22.7 % (19-41); Mean Corp Hgb Conc 34.5 g/dL (32-36); Mean Corpuscular Hgb 31.2 pg (27.0-32.0); Mean Corpuscular Volume 90.5 fL (80-94); Mean Platelet Vol. 9.6 fl (6.2-12.0); Monocyte# 0.28 X10^3/uL; Monocyte% 6.9 % (0-10); NRBC Flagged by Analyzer 0 % (0-5); Neutrophil # 2.82 X10^3/uL (2.7-7.7); Neutrophil % 69.7 % (47-70); Platelet Count 207 K/mm3 (150-450); RBC Distribution Width CV 12.5 % (11.6-14.6); RBC Distribution Width SD 41.6 fl (35.1-43.9); Red Blood Count 4.74 M/mm3 (4.6-6.2); White Blood Count 4.1 K/mm3 (4.4-11.0)
--- NOTE | 2024-06-19 08:42 | EX.ED.DYSGE1 ---
HPI History of Present Illness Chief Complaint: Shortness of Breath Narrative Narrative: Patient is a 69-year-old male past medical history of anxiety, depression, hypertension, bradycardia who presents to the emergency department chief complaint of generalized weakness, feeling his heart was racing his chest and nearly passing out this morning. Patient states that he was feeling unwell at the meeting in the week beginning the last week and had progressively worsened throughout the week prompting him to come to the hospital Wednesday when he broke on a fever and wound is having no generalized weakness. He states that while here Wednesday he was diagnosed with influenza and was sent home. He states that over the weekend he was doing well improving and states that this morning when he woke up he felt well. He states that as he was up moving around this morning he was beginning to feel unwell again. He states that he sat on the couch felt like his heart was racing in his chest and was feeling very short of breath. Patient states that he did have sweating with this as well but denies any fevers. Patient states has been taking the Tamiflu in the prednisone as prescribed. [facility] Medical History Weakness Near syncope Palpitations Anxiety and depression Lightheadedness Bradycardia Eustachian tube dysfunction Hypertension Home Medications ?Medication ?Instructions ?Recorded ?Last Taken ?Type losartan 25 mg tablet 25 mg PO DAILY #90 tabs 05/03/24 Unknown Rx oseltamivir 75 mg capsule (Tamiflu) 75 mg PO BID 5 days #10 caps 06/17/24 Unknown Rx prednisone 20 mg tablet 20 mg PO DAILY 5 days #5 tabs 06/17/24 Unknown Rx Allergy/AdvReac Type Severity Reaction Status Date / Time No Known Allergies Allergy Verified 06/16/24 22:21 Family History Mother Paroxysmal atrial fibrillation Father Anemia Social History household members: spouse housing: house Smoking Status: Never smoker alcohol intake: never substance use type: does not use caffeine: Yes Type: coffee Number of servings: 4 ROS ROS ED ROS Narrative Constitutional: Denies any fevers, chills, lightheadedness or dizziness Eyes: Denies change in visual vision blurry vision Cardiovascular: Complains of palpitations as noted above denies chest pain Respiratory: Complains of shortness of breath as noted above as well as coughing up sputum Abdomen: Denies abdominal pain nausea vomit diarrhea : Denies any urinary symptoms Neurological: Denies any numbness, weakness, tingling Musculoskeletal: Denies back pain Skin: Denies any rashes or lesions EXAM Physical Exam Narrative Exam Narrative: General: Patient lying in bed rest comfortably did not appear to be in acute distress Head: Atraumatic, normocephalic Eyes: PERRL bilaterally, EOMI bilaterally, no conjunctival injection noted Neck: Soft, supple, trachea midline Cardiovascular: Patient is bradycardic with a regular rhythm no murmurs gallops rubs noted Respiratory: Clear to auscultation bilaterally no rales rhonchi or wheezes noted Abdomen: Soft, nondistended, no tenderness palpation, bowel sounds present x 4 Extremities: +4/5 strength noted in the bilateral upper and lower extremities, no pedal edema no exam Neurological: Patient is following commands knew that he was at [facility] year is 2024 Skin: Warm, dry, intact no rashes or lesions noted Const Vital Signs: 06/19/24 08:06 06/19/24 08:13 06/19/24 08:25 Temperature 97.2 F L Temperature Source Temporal Pulse Rate 61 Respiratory Rate 23 H Respiratory Effort Short of Breath Respiratory Pattern Tachypnea Blood Pressure 125/81 H Blood Pressure Mean 95 Pulse Ox 99 Oxygen Delivery Method Room Air Room Air Room Air 06/19/24 09:06 06/19/24 10:00 06/19/24 11:00 Temperature Temperature Source Pulse Rate 56 L 58 L 51 L Respiratory Rate 19 H 20 H Respiratory Effort Respiratory Pattern Blood Pressure 114/78 133/83 H 143/82 H Blood Pressure Mean 90 99 102 Pulse Ox 100 97 Oxygen Delivery Method MDM MDM MDM Narrative Medical decision making narrative: Patient is a 69-year-old male who presented to the emergency department the chief complaint of cough, generalized weakness, palpitations and almost passing out. On the differential diagnose includes but not limited to ACS, pneumonia, dehydration, cardiac arrhythmia, electrolyte abnormality. Once workup is obtained reviewed he will be reevaluated. Patient be given 30 cc/kg bolus of IV fluids at 8:46 AM. Patient CBC was reviewed and showed a white blood count 4.1, hemoglobin 14.8, platelet count was noted to be 207. Patient's INR normal at 0.8, sodium normal 136, potassium normal 3.5, creatinine was normal at 1.09. Patient's lactic acid normal at 2. Patient's AST and ALT were 25 and 48 respectively. Patient's troponin was noted be 4 with a delta troponin obtained at 4 as well. Patient is EKG reviewed and showed sinus rhythm with a rate of 53 bpm with a QTc of 421 and a LA interval of 158. Patient's urinalysis did not show any evidence of infection. Patient's chest x-ray reviewed by myself and by radiology showed mild residual increased markings at the left lung base although there has been improvement as compared to prior study there is blunting of the left costophrenic angle. His proBNP was normal at 24.3. Did add on a D-dimer given the largely unremarkable workup which was normal as well at 0.40. Patient tested negative for COVID flu and RSV. On reevaluation the patient is feeling better. He did ambulate here well in the emergency department no tachycardia no hypoxia felt well. He would like to go home at this point time. Will place the patient on doxycycline he is advised to continue the prescriptions that he was already prescribed. He is encouraged to hydrate orally. He was advised given that he had influenza recently he will likely continue to feel weak overall for the next several days and this will slowly improved. He is advised to continue to increase his protein intake. He is encouraged to return with worse symptoms or other concerns. We will give him a Holter monitor if we have any available here which nursing staff is checking on currently. He was advised to return with worsening symptoms or concerns. He is agreeable this plan as well as significant other bedside all question concerns answered is discharged home in stable condition. We do have a Holter monitor therefore 48 monitor will be applied and he is advised to follow-up on this with his primary care physician. Lab Data Labs: Laboratory Results - last 24 hr 06/19/24 06/19/24 06/19/24 08:18 08:44 08:48 WBC 4.1 L RBC 4.74 Hgb 14.8 Hct 42.9 MCV 90.5 MCH 31.2 MCHC 34.5 RDW Std Deviation 41.6 RDW Coeff of Torey 12.5 Plt Count 207 MPV 9.6 Immature Gran % (Auto) 0.500 Neut % (Auto) 69.7 Lymph % (Auto) 22.7 [place] % (Auto) 6.9 Eos % (Auto) 0.0 Baso % (Auto) 0.2 Absolute Neuts (auto) 2.8 Absolute Lymphs (auto) 0.92 Nucleated RBC % 0 PT 11.2 L INR 0.8 APTT 30.3 D-Dimer Quant (PE/DVT) 0.40 Sodium 136 Potassium 3.5 Chloride 106 Carbon Dioxide 26.0 Anion Gap 5 BUN 15 Creatinine 1.09 Estim Creat Clear Calc 70.41 Est GFR (MDRD) Af Amer 87 Est GFR (MDRD) Non-Af 72 BUN/Creatinine Ratio 13.8 Glucose 123 H Lactic Acid 2.0 Calcium 9.0 Total Bilirubin 0.60 AST 25 ALT 48 Alkaline Phosphatase 68 Troponin I High Sens 4 B-Natriuretic Peptide 24.3 Total Protein 7.5 Albumin 3.9 Globulin 3.6 Albumin/Globulin Ratio 1.1 Urine Color Yellow Urine Clarity Clear Urine pH 8.0 Ur Specific [place] 1.010 Urine Protein 15 H Urine Glucose (UA) Normal Urine Ketones Negative Urine Occult Blood Negative Urine Nitrite Negative Urine Bilirubin Negative Urine Urobilinogen Normal Ur Leukocyte Esterase Negative Urine RBC 0 SEEN Urine WBC 0 SEEN Ur Squamous Epith Cells 0 SEEN Urine Bacteria 0 SEEN Urine Mucus 0 SEEN 06/19/24 10:21 WBC RBC Hgb Hct MCV MCH MCHC RDW Std Deviation RDW Coeff of Torey Plt Count MPV Immature Gran % (Auto) Neut % (Auto) Lymph % (Auto) [place] % (Auto) Eos % (Auto) Baso % (Auto) Absolute Neuts (auto) Absolute Lymphs (auto) Nucleated RBC % PT INR APTT D-Dimer Quant (PE/DVT) Sodium Potassium Chloride Carbon Dioxide Anion Gap BUN Creatinine Estim Creat Clear Calc Est GFR (MDRD) Af Amer Est GFR (MDRD) Non-Af BUN/Creatinine Ratio Glucose Lactic Acid Calcium Total Bilirubin AST ALT Alkaline Phosphatase Troponin I High Sens 4 B-Natriuretic Peptide Total Protein Albumin Globulin Albumin/Globulin Ratio Urine Color Urine Clarity Urine pH Ur Specific [place] Urine Protein Urine Glucose (UA) Urine Ketones Urine Occult Blood Urine Nitrite Urine Bilirubin Urine Urobilinogen Ur Leukocyte Esterase Urine RBC Urine WBC Ur Squamous Epith Cells Urine Bacteria Urine Mucus Radiography Diagnostic Testing: Clinical Impression(s) from Imaging Studies Chest X-Ray 06/19/24 08:22 IMPRESSION: Mild residual increased markings at the left lung base although there has been improvement as compared to prior study. There is blunting of the left costophrenic angle. Electronically Signed: Deo Kuhn MD at 9:43 EST , Discharge Plan Triage Chief Complaint: Shortness of Breath ED Provider: Charan Anglin Dx/Rx/DC Orders Clinical Impression: Palpitations Prescriptions: No Action losartan 25 mg tablet 25 mg PO DAILY Qty: 90 3RF prednisone 20 mg tablet 20 mg PO DAILY 5 Days Qty: 5 0RF oseltamivir [Tamiflu] 75 mg capsule 75 mg PO BID 5 Days Qty: 10 0RF Primary Care Provider: Blas Robb NP Referrals: Blas Robb DEVIL DOG, DEVIL DOG-C [Primary Care Provider] - Activity Restrictions/Additional Instructions: Follow-up with your doctor in outpatient setting. Wear Holter monitor as prescribed and take this to your family physician for review. Return with worsening symptoms or concerns. Finish the prescriptions that you already prescribed and take the antibiotics as prescribed. Ensure that you are increasing your hydration as well as your protein intake. Print Language: [place] Citizen Disposition Disposition: Home, Self Care
[2024-06-19 08:45] LABS: International Normalized Ratio 0.8; Partial Thromboplast Time 30.3 Seconds (24.1-36.2); Prothrombin Time (Protime)PT. 11.2 SECONDS (11.7-14.9)
[2024-06-19 08:53] LABS: ALB/GLOB Ratio 1.1 RATIO (0.9-2.4); AST(SGOT) 25 U/L (15-37); Alanine Aminotransfer ALT/SGPT 48 U/L (16-61); Albumin, Serum 3.9 g/dL (3.2-5.0); Alkaline Phosphatase 68 U/L (45-117); Anion Gap 5 (5-15); BNP,B-Type NATRIURETIC PEPTIDE 24.3 pg/mL (0-100); BUN 15 mg/dL (7-18); BUN/Creat Ratio 13.8 RATIO (10-20); Chloride 106 mmol/L (98-107); Creatinine, Serum 1.09 mg/dL (0.70-1.30); EST Glomerular Filtration Rate 72 mL/min (>60); Est Glom Filt Rate - Afr Amer 87 mL/min (>60); Estimated Creatinine Clearance 70.41 ml/min; Globulin 3.6 g/dL (2.2-4.2); Glucose 123 mg/dL (74-106); Potassium 3.5 mmol/L (3.5-5.1); Protein, Total 7.5 g/dL (6.4-8.2); Sodium Level 136 mmol/L (136-145); Troponin-I HS 4 pg/mL (3.0-78.0)
[2024-06-19 08:54] LABS: Bacteria 0 SEEN /hpf (None Seen); Mucous, Urine 0 SEEN /hpf (<or=2+); Red Blood Cells-Urine 0 SEEN /hpf (0-5); Squamous Epithelial Cells - UA 0 SEEN /hpf (0-5); White Blood Cells 0 SEEN /hpf (0-5)
[2024-06-19 08:58] LABS: Color, Urine Yellow (Yellow); Glucose, Dipstick Normal (Normal); Ketone-Dipstick Negative (Negative); Leukocyte Esterase-Dipstick Negative /ul (Negative); Nitrite-Dipstick Negative (Negative); Occult Blood-Urine Negative /ul (Negative); Protein-Dipstick 15 mg/dl (Negative); Urine Bilirubin Dipstick Negative (Negative); Urine Clarity Clear (Clear); Urine Urobilinogen Normal (Normal)
[2024-06-19 09:06] VITALS: BP 114/78; PULSE 56
[2024-06-19] MEDS: 0.9% Normal Saline (1000mL) 1,000 ML 999 ML IV ×3 (09:23→11:13)
[2024-06-19 10:00] VITALS: BP 133/83; PULSE 58; RESP 19; O2SAT 100
[2024-06-19 10:47] VITALS: O2SAT 98
[2024-06-19 10:47] LABS: Troponin-I HS 4 pg/mL (3.0-78.0)
[2024-06-19 11:00] VITALS: BP 143/82; PULSE 51; RESP 20; O2SAT 97
[2024-06-19 12:51] LABS: Reflex Lactate? Y
== END 2024-06-19 12:14 | disposition home or self-care (01) ==
PROVIDERS: Emergency Provider Emergency Medicine; PCP Nurse Practitioner Family; Visit Provider Emergency Medicine
DX: R00.2 Palpitations (principal); R06.02 Shortness of breath; I10 Essential (primary) hypertension; Z79.899 Other long term (current) drug therapy
CPT/HCPCS: 36415; 71046; 80053; 81001; 83605; 83880; 84484; 85025; 85379; 85610; 85730; 87040; 87086; 87631; 93005; 96360; 96361; 99284; A4216

== ENCOUNTER → 2024-06-19 | Outpatient (CLI) | payer OTHER, SELFPAY | END | disposition home or self-care (01) | PROVIDERS: PCP Nurse Practitioner Family; Visit Provider Emergency Medicine | DX: R00.2 Palpitations (principal) | CPT/HCPCS: 93225; 93226 ==